=== PATIENT | female | born 1965 | race African-American/Black ===

== ENCOUNTER 2016-10-10 17:33 | Emergency (ER) | payer MEDICARE, MEDICAID ==
[2016-10-10 18:03] VITALS: BP 148/89
== END 2016-10-10 20:34 | disposition left against medical advice (07) ==
LOC: ED 17:33
DX: M54.9 Dorsalgia, unspecified (principal)

== ENCOUNTER 2016-10-12 02:54 | Emergency (ER) | payer MEDICARE, MEDICAID ==
[2016-10-12] MEDS ORDERED: Ketorolac INJ* 60 MG/2 ML VIAL IM ONE (03:33)
[2016-10-12] MEDS ORDERED: Cyclobenzaprine TAB* 10 MG PO ONE (03:33)
--- NOTE | 2016-10-12 03:53 | ED ---
Zhen Haynes Rebecca, scribed for Luis Wonguel on 10/12/16 at 0327 . Back Pain - HPI Summary HPI Summary: Pt is a 51 y/o F who presents to ED c/o back pain. Pain is acute on chronic, worsening 1 week ago. Pain is diffuse, characterized as a burning and currently ranked 10/10. Sx aggravated by movement, alleviated by nothing, unchanged by Percocet (taken at 1800). Denies CP, SOB. Denies any recent trauma. Pt states that when her chronic pain worsens, she typically comes to [facility] to receive a Toradol shot. Notified her PCP of pain who state that she cannot receive Toradol shot at the office and that has why she has come to ED. Does not want a full work up, just a Toradol shot. Last physical exam was July 2016. - History of Current Complaint Stated Complaint: BACK PAIN Time Seen by Provider: 10/12/16 03:16 Hx Obtained From: Patient Onset/Duration: Gradual Onset, Lasting Weeks - 1 week, Still Present Back Pain Location: Is Diffuse Severity Initially: Moderate Severity Currently: Severe Pain Intensity: 10 Pain Scale Used: 0-10 Numeric Character: Burning Aggravating Symptom(s): Movement Alleviating Symptom(s): Nothing Associated Signs And Symptoms: Positive: Negative. Negative: Abdominal Pain - Allergies/Home Medications Allergies/Adverse Reactions: Allergies Allergy/AdvReac Type Severity Reaction Status Date / Time Ibuprofen Allergy Intermediate Edema Verified 09/03/16 16:05 PMH/Surg Hx/FS Hx/Imm Hx Endocrine/Hematology History: Denies: Hx Anticoagulant Therapy, Hx Diabetes Cardiovascular History: Reports: Hx Hypertension - ON MEDS Denies: Hx Congestive Heart Failure Musculoskeletal History: Reports: Other Musculoskeletal History - right total knee replacement, back issues Comment Only: Hx Back Problems - L5 fusion Neurological History: Denies: Hx Headaches, Hx Nerve Disease, Hx Seizures Psychiatric History: Reports: Hx Depression - Cancer History Hx Chemotherapy: No Hx Radiation Therapy: No - Surgical History Surgery Procedure, Year, and Place: L5 spinal fusion 2006, Right TKR 2009 - Immunization History Date of Tetanus Vaccine: utd Date of Influenza Vaccine: utd Infectious Disease History: No Infectious Disease History: Denies: Traveled Outside the [place] in Last 30 Days - Family History Known Family History: Positive: Cardiac Disease, Hypertension, Other - CVA - Social History Alcohol Use: None Hx Substance Use: Yes Substance Use Type: Reports: Excessive Caffeine, Marijuana, Other - h/o narcotic abuse Substance Use Comment - Amount & Last Used: 2 days ago Smoking Status (MU): Light Every Day Tobacco Smoker Review of Systems Negative: Chest Pain Negative: Shortness Of Breath Positive: Arthralgia - Diffuse back pain All Other Systems Reviewed And Are Negative: Yes Physical Exam Triage Information Reviewed: Yes Vital Signs On Initial Exam: Initial Vitals Temp Pulse Resp BP Pulse Ox 97.5 F 67 16 133/84 100 10/12/16 03:17 10/12/16 03:17 10/12/16 03:17 10/12/16 03:17 10/12/16 03:17 Vital Signs Reviewed: Yes Appearance: Positive: Well-Appearing, No Pain Distress Skin: Positive: Warm, Skin Color Reflects Adequate Perfusion, Dry Head/Face: Positive: Normal Head/Face Inspection Eyes: Positive: EOMI, JUAREZ ENT: Positive: Normal ENT inspection Neck: Positive: Supple, Nontender Respiratory/Lung Sounds: Positive: Clear to Auscultation, Breath Sounds Present Cardiovascular: Positive: RRR, Pulses are Symmetrical in both Upper and Lower Extremities Abdomen Description: Positive: Nontender, Soft Bowel Sounds: Positive: Present Musculoskeletal: Positive: Strength/ROM Intact, Other - Spasm of the lumbar spine Neurological: Positive: Normal, Sensory/Motor Intact, Alert, Oriented to Person Place, Time Diagnostics - Vital Signs Vital Signs Temp Pulse Resp BP Pulse Ox 10/12/16 03:17 97.5 F 67 16 133/84 100 - Laboratory Lab Statement: Any lab studies that have been ordered have been reviewed, and results considered in the medical decision making process. Back Pain Course/Dx - Course Assessment/Plan: Pt is a 51 y/o F who presents to ED with a CC of acute on chronic back pain, worse in the last week. Denies CP, SOB. Does not want a full work up. Would like to receive a Toradol shot to relieve pain and be d/c to home without workup. - Diagnoses Provider Diagnoses: spasm of lumbar spine, Back pain Discharge - Discharge Plan Condition: Stable Disposition: HOME Prescriptions: Cyclobenzaprine TAB* [Flexeril TAB*] 10 mg PO TID PRN #21 tab PRN Reason: Pain Patient Education Materials: Muscle Spasm (ED) Referrals: Magalys Glass MD [Primary Care Provider] - 3 Days (Follow up with your primary care physician within the next 3 days. ) The documentation as recorded by the Zhen ruiz Rebecca accurately reflects the service I personally performed and the decisions made by , Glen Wong.
[2016-10-12 04:41] VITALS: BP 126/89
== END 2016-10-12 04:10 | disposition home or self-care (01) ==
LOC: ED 02:54
DX: M62.830 Muscle spasm of back (principal); M54.9 Dorsalgia, unspecified; G89.29 Other chronic pain; I10 Essential (primary) hypertension; Z72.0 Tobacco use; F32.9 Major depressive disorder, single episode, unspecified
CPT/HCPCS: 96372; 99282; A9270-GY; J1885

== ENCOUNTER 2016-12-20 00:40 | Emergency (ER) | payer MEDICARE, MEDICAID ==
[2016-12-20] MEDS ORDERED: Ketorolac INJ* 60 MG/2 ML VIAL IM ONE (01:15)
[2016-12-20] MEDS ORDERED: Morphine INJ* 10 MG/ML 1 ML SYRINGE SUBCUT ONE (01:47)
--- NOTE | 2016-12-20 01:52 | ED ---
Back Pain - HPI Summary HPI Summary: Pt here w/ acute on chronic LBP and leg pain. She "overdid it today" - pain was acting up but she kept going and now she can't take it anymore. Denies fever, chills, N/V/D, weakness, numbness, incontinence of bowels/bladder. Reports she tried oxycodone at home w/o much relief. Would like a shot of toradol as this usually works well for her. - History of Current Complaint Chief Complaint: EDBackInjuryPain Stated Complaint: BACK PAIN Time Seen by Provider: 12/20/16 01:14 Hx Obtained From: Patient Pain Intensity: 10 - Allergies/Home Medications Allergies/Adverse Reactions: Allergies Allergy/AdvReac Type Severity Reaction Status Date / Time Ibuprofen Allergy Intermediate Edema Verified 09/03/16 16:05 PMH/Surg Hx/FS Hx/Imm Hx Previously Healthy: Yes Endocrine/Hematology History: Denies: Hx Anticoagulant Therapy, Hx Diabetes Cardiovascular History: Reports: Hx Hypertension - ON MEDS Denies: Hx Congestive Heart Failure Musculoskeletal History: Reports: Other Musculoskeletal History - right total knee replacement, back issues Comment Only: Hx Back Problems - L5 fusion Neurological History: Denies: Hx Headaches, Hx Nerve Disease, Hx Seizures Psychiatric History: Reports: Hx Depression - Cancer History Hx Chemotherapy: No Hx Radiation Therapy: No - Surgical History Surgery Procedure, Year, and Place: L5 spinal fusion 2006, Right TKR 2009 - Immunization History Date of Tetanus Vaccine: utd Date of Influenza Vaccine: utd Infectious Disease History: No Infectious Disease History: Denies: Traveled Outside the [place] in Last 30 Days - Family History Known Family History: Positive: Cardiac Disease, Hypertension, Other - CVA - Social History Alcohol Use: None Hx Substance Use: Yes Substance Use Type: Reports: Excessive Caffeine, Marijuana, Other Substance Use Comment - Amount & Last Used: 2 days ago Smoking Status (MU): Light Every Day Tobacco Smoker Review of Systems Negative: Fever, Chills Negative: Chest Pain Negative: Shortness Of Breath Negative: Abdominal Pain, Vomiting, Diarrhea, Nausea Positive: no symptoms reported Musculoskeletal: Other - see HPI Negative: Rash, Bruising Neurological: Other - see HPI Negative: Headache, Weakness, Paresthesia, Numbness Psychological: Normal All Other Systems Reviewed And Are Negative: Yes Physical Exam Triage Information Reviewed: Yes Vital Signs On Initial Exam: Initial Vitals Temp Pulse Resp BP Pulse Ox 96.8 F 86 15 151/96 100 12/20/16 00:43 12/20/16 00:43 12/20/16 00:43 12/20/16 00:43 12/20/16 00:43 Vital Signs Reviewed: Yes Appearance: Positive: Well-Appearing, Pain Distress - lying supine on stretcher and appears to be in moderate pain, Obese Skin: Positive: Warm, Dry Head/Face: Positive: Normal Head/Face Inspection Eyes: Positive: Normal, EOMI, Conjunctiva Clear ENT: Positive: Hearing grossly normal Respiratory/Lung Sounds: Positive: Breath Sounds Present Cardiovascular: Positive: Normal, Pulses are Symmetrical in both Upper and Lower Extremities Abdomen Description: Positive: Nontender, Soft Musculoskeletal: Positive: Limited @ - LE's movement triggers LBP; Lumbar region TTP Neurological: Positive: Normal, Sensory/Motor Intact, Alert, Oriented to Person Place, Time, CN Intact II-III Psychiatric: Positive: Normal - concerned Diagnostics - Vital Signs Vital Signs Temp Pulse Resp BP Pulse Ox 12/20/16 00:43 96.8 F 86 15 151/96 100 - Laboratory Lab Statement: Any lab studies that have been ordered have been reviewed, and results considered in the medical decision making process. Re-Evaluation - Re-Evaluation First Eval Change: Improved - mild improvement w/ toradol - requesting something else as well Back Pain Course/Dx - Course Course Of Treatment: Pt presents w/ acute on chronic LBP + LE pain. Reports she' s been doing well but overdid it today and needed help getting pain under control as she tried oxycodone at home w/o relief. Provided w/ NSAID and subcutaneous narcotic pain med with the intentions of reducing pain and inflammation over a longer period of time. Pt agrees w/ plan and will follow-up with PCP. She is aware of danger s/sx of when to return to ED. - Diagnoses Provider Diagnoses: Acute exacerbation of chronic low back pain Discharge - Discharge Plan Condition: Stable Disposition: HOME Patient Education Materials: Chronic Back Pain (ED), Leg Pain (ED) Referrals: Magalys Glass MD [Primary Care Provider] - Additional Instructions: Follow-up with PCP. Call tomorrow to schedule an appointment. *If you develop fever, chills, chest pain, shortness of breath, weakness/ numbness in lower extremities, incontinence of bowels/bladder, return to ED
[2016-12-20 03:55] VITALS: BP 131/80
== END 2016-12-20 03:53 | disposition home or self-care (01) ==
LOC: ED 00:40
DX: M54.5 Low back pain (principal)
CPT/HCPCS: 96372; 99281; J1885; J2270

== ENCOUNTER 2017-02-03 22:35 | Emergency (ER) | payer MEDICAID, MEDICARE ==
[2017-02-03 22:53] VITALS: BP 154/88
== END 2017-02-03 23:45 | disposition left against medical advice (07) ==
LOC: ED 22:35
DX: R52 Pain, unspecified (principal); Z53.21 Procedure and treatment not carried out due to patient leaving prior to being seen by health care provider

== ENCOUNTER 2017-02-04 03:55 | Emergency (ER) | payer SELFPAY ==
[2017-02-04] MEDS ORDERED: oxyCODONE/Acetamin 5/325 MG* TAB PO ONE (06:19)
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
[2017-02-04 07:38] VITALS: BP 154/103
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
== END 2017-02-04 07:43 | disposition home or self-care (01) ==
LOC: ED 03:55
DX: S06.0X0A Concussion without loss of consciousness, initial encounter (principal); S40.012A Contusion of left shoulder, initial encounter; S16.1XXA Strain of muscle, fascia and tendon at neck level, initial encounter; R51 Headache; M54.2 Cervicalgia; M54.5 Low back pain; F17.210 Nicotine dependence, cigarettes, uncomplicated; V43.52XA Car driver injured in collision with other type car in traffic accident, initial encounter; Y93.9 Activity, unspecified; Y92.9 Unspecified place or not applicable
CPT/HCPCS: 70450; 72125; 99281; A9270-GY

== ENCOUNTER 2017-10-24 22:27 | Emergency (ER) | payer MEDICARE, MEDICAID ==
[2017-10-24 22:35] VITALS: BP 144/93
== END 2017-10-25 00:10 | disposition left against medical advice (07) ==
LOC: ED 22:27
DX: M54.9 Dorsalgia, unspecified (principal); Z53.21 Procedure and treatment not carried out due to patient leaving prior to being seen by health care provider

== ENCOUNTER 2017-10-25 20:41 | Emergency (ER) | payer MEDICARE, MEDICAID ==
[2017-10-25] MEDS ORDERED: Ketorolac INJ* 60 MG/2 ML VIAL IM ONE (21:03)
[2017-10-25] MEDS ORDERED: diPHENhydraMINE PO* 25 MG PO ONE (21:03)
--- NOTE | 2017-10-25 21:05 | ED ---
Lower Extremity - HPI Summary HPI Summary: 52-year-old female presents for left calf cramping. She states she fell on Monday and has been having Travis horses in her legs. She has a history of chronic back pain is unchanged since the fall. She states she slipped on ice when she fell. She denies any head injury. She states she twisted her right ankle and then landed on her left knee. She states she has a history of a long cyst on her left knee that has not gone away. She states she has notices some swelling of left leg. She denies any chest pain or shortness of breath. She denies any history of blood clots or family history of blood clots. she has been taking her normal pain medication without relief. She states she is here for a Toradol shot with benadryl. She has been able to ambulate. She denies any fever. She denies any loss of bowel or bladder or saddle anaesthesia. Her back pain is in same location as previous. - History of Current Complaint Chief Complaint: EDGeneral Stated Complaint: LT LEG SWOLLEN Time Seen by Provider: 10/25/17 20:55 Pain Intensity: 10 - Allergies/Home Medications Allergies/Adverse Reactions: Allergies Allergy/AdvReac Type Severity Reaction Status Date / Time MS Ibuprofen [Ibuprofen] Allergy Intermediate Edema Verified 10/24/17 22:35 PMH/Surg Hx/FS Hx/Imm Hx Endocrine/Hematology History: Denies: Hx Anticoagulant Therapy, Hx Diabetes Cardiovascular History: Reports: Hx Hypertension - ON MEDS Denies: Hx Congestive Heart Failure Musculoskeletal History: Reports: Other Musculoskeletal History - right total knee replacement, back issues Comment Only: Hx Back Problems - L5 fusion Neurological History: Denies: Hx Headaches, Hx Nerve Disease, Hx Seizures Psychiatric History: Reports: Hx Depression - Cancer History Hx Chemotherapy: No Hx Radiation Therapy: No - Surgical History Surgery Procedure, Year, and Place: L5 spinal fusion 2006, Right TKR 2009 - Immunization History Date of Tetanus Vaccine: utd Date of Influenza Vaccine: utd Infectious Disease History: No Infectious Disease History: Denies: Traveled Outside the [place] in Last 30 Days - Family History Known Family History: Positive: Cardiac Disease, Hypertension, Other - CVA - Social History Alcohol Use: None Hx Substance Use: Yes Substance Use Type: Reports: Excessive Caffeine, Marijuana, Other Substance Use Comment - Amount & Last Used: 2 days ago Smoking Status (MU): Light Every Day Tobacco Smoker Review of Systems Negative: Chest Pain Negative: Shortness Of Breath Positive: Myalgia - left calf pain All Other Systems Reviewed And Are Negative: Yes Physical Exam Triage Information Reviewed: Yes Vital Signs On Initial Exam: Initial Vitals Temp Pulse Resp BP Pulse Ox 98.1 F 84 20 129/95 100 10/25/17 20:43 10/25/17 20:43 10/25/17 20:43 10/25/17 20:43 10/25/17 20:43 Vital Signs Reviewed: Yes Appearance: Positive: Well-Appearing Skin: Positive: Warm, Dry Head/Face: Positive: Normal Head/Face Inspection Eyes: Positive: Normal, Conjunctiva Clear Respiratory/Lung Sounds: Positive: Clear to Auscultation, Breath Sounds Present Cardiovascular: Positive: Normal, RRR Musculoskeletal: Positive: Strength/ROM Intact - left leg, Other - good pulses, sensation grossly intact, nontender left calf, tenderness to lower back. Negative: Carmencita Sign Left, Edema Left Neurological: Positive: Normal Psychiatric: Positive: Normal Diagnostics - Vital Signs Vital Signs Temp Pulse Resp BP Pulse Ox 10/25/17 20:43 98.1 F 84 20 129/95 100 - Laboratory Lab Statement: Any lab studies that have been ordered have been reviewed, and results considered in the medical decision making process. Lower Extremity Course/Dx - Course Course Of Treatment: 52-year-old female presents for left calf cramping. She states she fell on Monday and has been having Travis horses in her legs. She has a history of chronic back pain is unchanged since the fall. She states she slipped on ice when she fell. She denies any head injury. She states she twisted her right ankle and then landed on her left knee. She states she has a history of a long cyst on her left knee that has not gone away. She states she has notices some swelling of left leg. She denies any chest pain or shortness of breath. She denies any history of blood clots or family history of blood clots. she has been taking her normal pain medication without relief. She states she is here for a Toradol shot with benadryl. She has been able to ambulate. on exam neg homans, nontender calf. good pulses. offered to due u/ s to r/o blood clot and lab work for electroyltes but patient declined. states only here for toradol shot and will follow up with primary for continued care. gave toradol. will give flexeril for home. patient understand and agrees with plan. - Diagnoses Differential Diagnosis/HQI/PQRI: Positive: Dislocation, Sprain, Strain Provider Diagnoses: Muscle spasm of left calf Discharge - Discharge Plan Condition: Good Disposition: HOME Prescriptions: Cyclobenzaprine TAB* [Flexeril 10 MG TAB*] 10 mg PO TID PRN #9 tab PRN Reason: Pain Patient Education Materials: Muscle Spasm (ED) Referrals: Magalys Glass MD [Primary Care Provider] - Additional Instructions: Take muscle relaxers three times a day for pain Use Tylenol for pain every 6 hours ice/heat area, move as much as possible Follow up with primary within 5 days Return to ED if develop any new or worsening symptoms
[2017-10-25] MEDS ORDERED: Cyclobenzaprine TAB* 10 MG PO ONE (21:07)
[2017-10-25] MEDS ORDERED: diPHENhydraMINE IV* 50 MG/ML 1 ml VIAL (BENADRYL) IM ONE (21:17)
[2017-10-25] MEDS ORDERED: diPHENhydraMINE IV* 50 MG/ML 1 ml VIAL (BENADRYL) ONE (21:18)
[2017-10-25 21:58] VITALS: BP 139/81
== END 2017-10-25 21:58 | disposition home or self-care (01) ==
LOC: ED 20:41
DX: M62.831 Muscle spasm of calf (principal); M79.605 Pain in left leg
CPT/HCPCS: 96372; 99282; A9270-GY; J1200; J1885

== ENCOUNTER 2018-04-25 20:05 | Emergency (ER) | payer MEDICARE, MEDICAID ==
--- NOTE | 2018-04-25 21:59 | ED ---
Throat Pain/Nasal Congestion - HPI Summary HPI Summary: 52 female presents ER with complaints of right eye irritation and discharge began yesterday. States her eye feels itchy. Patient states she was around her grandchildren who have pinkeye. Patient was treating them with her drops. States discharge is purulent. Denies any photosensitivity or foreign body. Denies anything getting into her eye. No other complaints or concerns. No significant past medical history. Does not wear contacts does wear glasses. - History of Current Complaint Chief Complaint: EDEyeProblem Time Seen by Provider: 04/25/18 21:03 Hx Obtained From: Patient Onset/Duration: Sudden Onset, Lasting Days - 1, Still Present, Worse Since Severity: Mild Associated Signs And Symptoms: Positive: Negative Cough: None - Allergies/Home Medications Allergies/Adverse Reactions: Allergies Allergy/AdvReac Type Severity Reaction Status Date / Time ibuprofen Allergy Edema Verified 04/25/18 20:09 PMH/Surg Hx/FS Hx/Imm Hx Previously Healthy: Yes - other all Endocrine/Hematology History: Denies: Hx Anticoagulant Therapy, Hx Diabetes Cardiovascular History: Reports: Hx Hypertension - ON MEDS Denies: Hx Congestive Heart Failure Musculoskeletal History: Reports: Other Musculoskeletal History - right total knee replacement, back issues Comment Only: Hx Back Problems - L5 fusion Neurological History: Denies: Hx Headaches, Hx Nerve Disease, Hx Seizures Psychiatric History: Reports: Hx Depression - Cancer History Hx Chemotherapy: No Hx Radiation Therapy: No - Surgical History Surgery Procedure, Year, and Place: L5 spinal fusion 2006, Right TKR 2009 - Immunization History Date of Tetanus Vaccine: utd Date of Influenza Vaccine: utd Infectious Disease History: No Infectious Disease History: Denies: Traveled Outside the [place] in Last 30 Days - Family History Known Family History: Positive: Cardiac Disease, Hypertension, Other - CVA - Social History Alcohol Use: None Hx Substance Use: Yes Substance Use Type: Reports: Excessive Caffeine, Marijuana, Other Substance Use Comment - Amount & Last Used: 2 days ago Smoking Status (MU): Light Every Day Tobacco Smoker Review of Systems Constitutional: Negative Positive: Drainage, Erythema, Other - itching right eye Cardiovascular: Negative Respiratory: Negative Musculoskeletal: Negative Skin: Negative Neurological: Negative All Other Systems Reviewed And Are Negative: Yes Physical Exam Triage Information Reviewed: Yes Vital Signs On Initial Exam: Initial Vitals Temp Pulse Resp BP Pulse Ox 96.9 F 77 20 140/89 100 04/25/18 20:06 04/25/18 20:06 04/25/18 20:06 04/25/18 20:06 04/25/18 20:06 Vital Signs Reviewed: Yes Appearance: Positive: Well-Appearing, No Pain Distress, Well-Nourished Skin: Positive: Warm, Skin Color Reflects Adequate Perfusion, Dry. Negative: Cold, Numb, Diaphoretic, Pale, Erythema @ Head/Face: Positive: Normal Head/Face Inspection Eyes: Positive: EOMI, JUAREZ, Conjunctiva Inflammed, Discharge - Purulent crusting in Right eye ENT: Positive: Normal ENT inspection, Hearing grossly normal, Pharynx normal, TMs normal, Uvula midline. Negative: Tonsillar swelling, Tonsillar exudate Neck: Positive: Supple, Nontender, No Lymphadenopathy Respiratory/Lung Sounds: Positive: Clear to Auscultation, Breath Sounds Present. Negative: Rales, Rhonchi Cardiovascular: Positive: Normal, RRR, Pulses are Symmetrical in both Upper and Lower Extremities. Negative: Murmur, Rub Bowel Sounds: Positive: Present Musculoskeletal: Positive: Normal, Strength/ROM Intact. Negative: Limited @, Interruption @, Pain @ Neurological: Positive: Normal, Sensory/Motor Intact, Alert, Oriented to Person Place, Time, NV Bundle Intact Distally, Normal Gait Diagnostics - Vital Signs Vital Signs Temp Pulse Resp BP Pulse Ox 04/25/18 21:32 97.5 F 63 18 126/76 04/25/18 20:06 96.9 F 77 20 140/89 100 - Laboratory Lab Statement: Any lab studies that have been ordered have been reviewed, and results considered in the medical decision making process. EENT Course/Dx - Course Course Of Treatment: Appears to be suffering from conjunctivitis. Will treat with Polytrim. Patient does not wear contacts. Warm compresses good hygiene. Aware worsening signs symptoms watch out for. Follow-up with primary care provider. - Differential Diagnoses Differential Diagnoses: Allergic Rhinitis, Conjunctivitis - Diagnoses Provider Diagnoses: Conjunctivitis, right eye Discharge - Sign-Out/Discharge Documenting (check all that apply): Patient Departure - Discharge Plan Condition: Good Disposition: HOME Patient Education Materials: Conjunctivitis (ED) Referrals: Magalys Glass MD [Primary Care Provider] - Additional Instructions: use prescribed drops as directed for the next 7-10 days even if symptoms improve. if symptoms spread to other eye you may also use drops in that eye. warm compresses. wash all pillows, blankets, towels, sheets with hot water. wash hands frequently this is contagious follow up with PCP as needed - Billing Disposition and Condition Condition: GOOD Disposition: Home
[2018-04-25] MEDS ORDERED: Polymyx/Trimethoprim OPTH* 10 ML BTL RIGHT EYE SCH (22:00)
[2018-04-25 22:46] VITALS: BP 00/00
== END 2018-04-25 22:44 | disposition home or self-care (01) ==
LOC: ED 20:05
DX: H10.31 Unspecified acute conjunctivitis, right eye (principal); I10 Essential (primary) hypertension; Z96.651 Presence of right artificial knee joint; Z88.6 Allergy status to analgesic agent; Z82.49 Family history of ischemic heart disease and other diseases of the circulatory system; Z82.3 Family history of stroke; F17.200 Nicotine dependence, unspecified, uncomplicated
CPT/HCPCS: 99282

== ENCOUNTER 2019-03-11 08:25 | Observation (INO) | payer MEDICARE, MEDICAID ==
[~2019-03-11 08:25] MED LIST: Acetaminophen TAB* 325 MG ONE; Acetaminophen TAB* 325 MG PO ONE; Buffered Lidocaine 1% SYRIN* 1 ML/SYRINGE INTRADERM ONE; Famotidine IV* 10 MG/ML 2 ML (20 mg) IV ONE; Famotidine IV* 10 MG/ML 2 ML (20 mg) ONE; Gabapentin CAP(*) 300 MG ONE; Gabapentin CAP(*) 300 MG PO ONE; Lactated Ringers 1000 ML Bag* 1,000 ML IV SCH; Tranexamic Acid 1,000 MG in NS 0.9% 50 ML* (outpatient use) IV SCH; ceFAZolin 2 GM in NS PREMIX(*) 2 GM/100 ML BAG IVPB ONE
--- OUTSIDE RECORDS SUMMARY | 2019-03-11 08:34 | XMS REPORT | Continuity of Care Document ---
:1965 External Reference #:[id number] Author Name Chana Cortez Care Team Providers Name Role Phone Patient's Choice Primary Care Physician Unavailable Payers Date Identification Numbers Payment Provider Subscriber Policy Number: [id number] Medicare Nunu Cortes PayID: [id number] [address] [place] [address] Policy Number: [id number] Medicaid Nunu Cortes PayID: [id number] [address] [place] [address] Effective: 2009 Policy Number: [id number] Medicare Nunu Cortes Expires: 2019 PayID: [id number] [address] [place] [address] Problems Active Problems Provider Date Late effect of sprain AND/OR strain Ezequiel Horton M.D. Onset: 01/09/2019 without tendon injury Sciatica Ezequiel Horton M.D. Onset: 09/24/2015 Benign essential hypertension Ramiro Sow M.D.,FACP Onset: 05/10/2010 Family History Date Family Member(s) Observation Comments General mother w/ breast CA in late 50s/early 60s4 paternal aunts w/ breast CA Social History Type Date Description Comments Sex Unknown Marital Status Single Occupation Unemployed General single, lives alone, currently unemployed and on disability. Tobacco Use Start: Unknown Current Cigarette Smoker 1 Pack Daily ETOH Use Denies alcohol use Recreational Drug Use Denies Drug Use Tobacco Use Start: Unknown Patient is a current smoker, smokes every day Smoking Status Reviewed: 01/09/19 Patient is a current smoker, smokes every day Allergies, Adverse Reactions, Alerts Active Allergies Reaction Severity Comments Date Ibuprofen swelling 05/10/2010 Morphine 12/06/2013 Inactive Allergies NKDA 05/10/2010 Medications Active Medications SIG Qnty Indications Ordering Date Provider THC Free Ezequiel Horton, 02/13/2019 20mg/ml Liquid Dax Flector apply 1 60units Ezequiel Horton 05/04/2015 1.3% Patches patch bid M.DEma Clonazepam Ezequiel Horton 10/01/2014 1mg Tablets M.D. Hydrochlorothiazide Unknown 25mg History Medications Gabapentin take one 60caps Ezequiel 10/28/2015 - 100mg Capsules capsules by Dax Horton 02/13/2019 mouth at bedtime and in the morning Lidocaine apply to back 35.440gm Sandee 05/04/2015 - 5% Ointment area three Carreno-Young, 02/13/2019 times a day as M.Sydnee needed. Percocet 1 by mouth 60tabs Ezequiel 05/01/2015 - 5-325mg Tablets every 6 hours Dax Horton 10/22/2015 as needed pain Gabapentin Two capsules 60caps Ezequiel 11/25/2014 - 300mg Capsules at bedtime for Dax Horton 10/28/2015 nerve pain Celecoxib Take one 60caps Ezequiel 11/25/2014 - 200mg Capsules capsule two Dax Horton 02/13/2019 times a day. Ultram 1-2 by mouth 60tabs Ezequiel 11/12/2014 - 50mg Tablets twice a day as Dax Horton 02/13/2019 needed, take with 2 es tylenol Oxycodone HCL 1 by mouth Ezequiel 10/01/2014 - 10mg Tablets every 6 hr. as Dax Horton 11/11/2014 needed pain Ketorolac Tromethamine take 1 by 15tabs Ezequiel 01/31/2014 - 10mg mouth every 8 Dax Horton 06/03/2014 Tablets hours as needed for migraine. take with food. Percocet 1-2 tabs po 2tabs Ezequiel 03/11/2013 - 5-325mg Tablets daily prn pain Dax Horton 12/06/2013 Neurontin 1 po bid, then 90caps Ezequiel 01/10/2013 - 300mg Capsules after 4 days Dax Horton 12/06/2013 if no effect, increase qhs dose to 2 tabs Vicodin 1-2 tablets 30tabs Ezequiel 01/10/2013 - 5-500mg Tablets qhs as needed Dax Horton 12/06/2013 Ultram 1-2 po qid prn 90tabs Ezequiel 05/31/2011 - 50mg Tablets Dax Horton 01/10/2013 Alprazolam 1 tablets po 21tabs 300.01 Ramiro Randhawa 04/05/2010 - 1mg Tablets tid prn Magi, 12/06/2013 Dax,FACP Omeprazole 1 po qd 30caps 716.96 Ramiro Randhawa 04/05/2010 - 20mg Capsules DR Sow, 01/10/2013 Dax,FACP Naproxen 1 po bid prn 60tabs 716.96 Ramiro Randhawa 04/05/2010 - 500mg Tablets Magi, 01/10/2013 Dax,FACP Paroxetine HCL 1 po qd with 30tabs 300.01 Ramiro Randhawa 04/05/2010 - 20mg Tablets 40 mg tab Magi, 01/10/2013 Dax,LUDWIGP Paroxetine HCL qd po plus 20 300.01 Ramiro Randhawa 04/05/2010 - 40mg Tablets mg tab qam Magi, 02/13/2019 Dax,FACP Paroxetine HCL 1 tablet po 60tabs 278.01 Jabier 02/09/2010 - 40mg Tablets bid Dax Hutton 04/05/2010 HCTZ 1 po qd 90units 278.01 Jabier 12/28/2009 - 25mg. Dax Hutton 04/05/2010 Chantix 1 tab po daily 11tablets 305.1 Jabier 11/25/2009 - 0.5mg Tablets for 3 days Dax Hutton 12/28/2009 then 1 tab po bid for 4 days Chantix 1 po bid 120tabs 305.1 Jabier 11/25/2009 - 1mg Tablets Dax Hutton 12/28/2009 Buspirone HCL 1 tab po bid x 120tabs 300.02 Thanana, 10/27/2009 - 7.5mg Tablets 1 wk, then 2 Dax oNlen 12/28/2009 tabs po bid Piroxicam 1 tablet po qd 30caps 300.02 Jabier, 09/28/2009 - 20mg Capsules corin Hutton M.D. 02/09/2010 Omeprazole 1 po bid 60caps 787.1 Jabier, 08/06/2009 - 20mg Capsules DR Brennen M.D. 02/09/2010 Colace 1 po bid 180caps Thananart, 08/06/2009 - 100mg Capsules Dax Nolen 02/09/2010 Taylor 1 tab po bid 30caps Thananart, 04/24/2009 - 60mg Caps ER 24HR Dax Nolen 08/06/2009 Paroxetine HCL 2 tabs po qd 90tabs 300.02 Jabier, 04/23/2009 - 20mg Tablets Dax Hutton 02/09/2010 Lyrica 1 tab po bid 60caps 719.47 Preethi, 03/25/2009 - 75mg Capsules Dax Nolen 08/06/2009 Hydrochlorothiazide 1 po qd 30tabs 796.2 Jabier, 03/04/2009 - 25mg Dax Hutton 09/30/2014 Tablets Paroxetine HCL 2 tabs po qd 60tabs 300.02 Thanquin, 03/04/2009 - 20mg Tablets Dax Nolen 04/23/2009 Voltaren Gel apply 4g to 5Tubes 300.02 Thanquin, 03/04/2009 - 1% affected area Dax Nolen 08/06/2009 qid PA# [id number] Paroxetine HCL 1 tab po qd 30tabs 327.02 Thanana, 12/29/2008 - 20mg Tablets Dax Nolen 03/04/2009 Paroxetine HCL 1 tab po qd x 60tabs 300.02 Thananart, 10/13/2008 - 10mg Tablets 7 days, then 2 Dax Nolen 12/29/2008 tabs po qd Amoxicillin 1 tab po bid x 20tabs 461.8 Thananart, 09/22/2008 - 875mg Tablets 10 D. Dax Nolen 03/04/2009 Graham Nasal [place] 2 sprays per 1Bottle 461.8 Thananart, 09/22/2008 - 0.65% nostril Dax Nolen 02/09/2010 Solution bid-tid prn Klonopin 1 tab po tid 90tabs 300.01 Gerard Armando 09/22/2008 - 1mg Tablets Dax Long 04/05/2010 Klonopin 1 tab po bid 60tabs Thananart, 09/04/2008 - 1mg Tablets Dax Nolen 09/22/2008 Alprazolam 1 tab po tid 10tabs Ramiro Randhawa 08/20/2008 - 0.25mg Tablets prn Cashion, 08/06/2009 Dax,FACP Restoril qhs prn 30caps Thananart, 06/26/2008 - 15mg Capsules Dax Nolen 07/08/2008 Klonopin 1 tab po bid 60tabs Thananart, 06/26/2008 - 0.5mg Tablets Dax Nolen 09/04/2008 Restoril 1 po qhs prn 30caps Thananart, 05/01/2008 - 30mg Capsules Dax Nolen 06/26/2008 Temazepam 1 tab po qhs 30caps Thananart, 04/24/2008 - 15mg Capsules Dax Nolen 05/01/2008 Zolpidem Tartrate 1 tab po qhs 30tabs 796.2 Thananart, 04/04/2008 - 10mg Tablets prn Dax Nolen 04/24/2008 Bupropion HCL 1 tab po qd 30tabs Thananart, 04/04/2008 - 300mg Tablets ER Dax Nolen 08/06/2009 24HR Taylor 1 tab po bid Unknown - 50mg Caps ER 24HR 04/24/2009 Baclofen .5 po q8h as 60tabs Unknown - 10mg Tablets needed for 08/06/2009 spasm. Suboxone 1 under tongue 90tabs Unknown - 8-2mg Tablets Sub twice a day 09/28/2009 Celebrex 1 po bid 360caps Thananart, - 100mg Capsules Dax Nolen 09/28/2009 Lyrica 1 po bid 90caps Unknown - 100mg Capsules 09/28/2009 Orphenadrine Citrate CR 2 tabs po qhd 20tabs Unknown - 100mg prn 08/06/2009 Tablets ER 12HR Lyrica 1 po bid 719.47 Unknown - 100mg Capsules 08/06/2009 Savella 1 tab po bid Unknown - 50mg Tablets prn 09/28/2009 Tylenol Extra Strength 2 po prn Unknown - 500mg 12/06/2013 Tablets Oxycodone HCL Unknown - 10/05/2014 Klonopin 1 by mouth 30tabs Unknown - 1mg Tablets twice a day 11/30/2014 Naproxen 1 tab po bid Unknown - 500mg 11/25/2014 Oxaprozin 2 tabs po qd 327.02 Unknown - 600mg Tablets prn 08/06/2009 Lyrica 1 tab po tid 327.02 Unknown - 100mg Capsules 03/25/2009 Morphine Sulfate one to two Unknown - 15mg/ml tabs po bid 08/06/2009 Solution Taylor one tab po bid Unknown - 100mg Caps ER 24HR 04/23/2009 Senna Unknown - 15mg Tablets 08/06/2009 Skelaxin take 1/2 to 1 90tabs 796.2 Unknown - 800mg Tablets tab q6to 8 hr 08/06/2009 as needed do not exceed 3 tabs daily Lidoderm Patch 1 patch on for 30units Ezequiel - 5% Patches 12 hours, no Dax Horton 11/30/2014 patch for the other 12 hours Tizanidine HCL 1 tab po qam 796.2 Sanito, - 4mg Tablets and sylvester Cuello MD 04/24/2008 Oxycodone HCL 1 tab po q4h 796.2 Sanito, - 5mg Tablets pryonis Cuello MD 07/08/2008 Duragesic 1 patch td 796.2 Sanito, - 100mcg/HR Patches q72h MD Cuate 07/08/2008 72HR Remeron 1 tab po qhs 796.2 Thananart, - 30mg Tablets Dax Nolen 07/08/2008 Lyrica 1 tab po bid 796.2 Thananart, - 225mg Capsules Dax Nolen 12/29/2008 Bupropion HCL SR 1 tab po qd Thananart, - 200mg Tablets Dax Nolen 04/04/2008 ER 12HR Medications Administered in Office Medication SIG Qnty Indications Ordering Provider Date Depomedrol 40MG Ruddy Contreras M.D. 09/02/2015 Injection Depomedrol 40MG Ruddy Contreras M.D. 09/02/2015 Injection Depomedrol 40MG Emily Estrada RPA-C 08/26/2015 Injection Depomedrol 80MG Ezequiel Horton M.D. 10/28/2014 Injection Depomedrol 80MG PARRISH Moreno-C 10/01/2014 Injection Depomedrol 80MG PARRISH Moreno-C 05/02/2014 Injection Depomedrol 80MG Ezequiel Horton M.D. 01/10/2013 Injection Depomedrol 40MG Liz Robin PA 02/26/2010 Injection Depomedrol 40MG Mannie Fox, 12/22/2009 Injection R.S.A.-O Vital Signs Date Vital Result Comment 02/13/2019 11:05am Height 68 inches 5'8" Weight 211.00 lb Heart Rate 98 /min BP Systolic 142 mmHg BP Diastolic 78 mmHg Body Temperature 97.3 F Pain Level 10 BMI (Body Mass Index) 32.1 kg/m2 01/09/2019 10:49am Height 68 inches 5'8" Weight 211.00 lb Heart Rate 70 /min BP Systolic 124 mmHg BP Diastolic 70 mmHg Respiratory Rate 14 /min Pain Level 10 BMI (Body Mass Index) 32.1 kg/m2 09/24/2015 2:47pm Height 68 inches 5'8" Weight 215.00 lb Pain Level 8 BMI (Body Mass Index) 32.7 kg/m2 09/02/2015 1:01pm Height 68 inches 5'8" Weight 215.00 lb Pain Level 10 Pain is above a 10 BMI (Body Mass Index) 32.7 kg/m2 08/26/2015 12:53pm Height 68 inches 5'8" Weight 215.00 lb Pain Level 10 BMI (Body Mass Index) 32.7 kg/m2 11/25/2014 1:19pm Height 68 inches 5'8" Weight 215.00 lb Pain Level 10 BMI (Body Mass Index) 32.7 kg/m2 11/12/2014 9:27am Height 68 inches 5'8" Heart Rate 82 /min BP Systolic 143 mmHg BP Diastolic 101 mmHg 10/28/2014 10:32am Height 68 inches 5'8" Heart Rate 82 /min BP Systolic 140 mmHg BP Diastolic 96 mmHg 10/01/2014 10:28am Height 68 inches 5'8" Heart Rate 66 /min BP Systolic 132 mmHg BP Diastolic 87 mmHg 07/04/2014 11:12am Height 68 inches 5'8" Weight 215.00 lb Body Temperature 98.3 F BMI (Body Mass Index) 32.7 kg/m2 06/04/2014 3:11pm Height 68 inches 5'8" Weight 215.00 lb Heart Rate 66 /min BMI (Body Mass Index) 32.7 kg/m2 05/02/2014 1:22pm Height 68 inches 5'8" Weight 215.00 lb Heart Rate 76 /min Pain Level 10 BMI (Body Mass Index) 32.7 kg/m2 01/31/2014 10:18am Height 68 inches 5'8" Weight 215.00 lb Heart Rate 76 /min BP Systolic 123 mmHg BP Diastolic 85 mmHg BMI (Body Mass Index) 32.7 kg/m2 12/06/2013 1:29pm Height 68 inches 5'8" Weight 215.00 lb Heart Rate 71 /min BP Systolic 128 mmHg BP Diastolic 90 mmHg BMI (Body Mass Index) 32.7 kg/m2 05/10/2010 3:40pm Weight 256.00 lb Heart Rate 68 /min BP Systolic 120 mmHg BP Diastolic 70 mmHg 04/05/2010 11:29am Weight 262.00 lb with knee brace Heart Rate 90 /min BP Systolic Sitting 110 mmHg BP Diastolic Sitting 80 mmHg 02/09/2010 2:49pm Weight 259.00 lb Heart Rate 88 /min BP Systolic Sitting 112 mmHg BP Diastolic Sitting 70 mmHg 12/28/2009 10:48am Weight 272.00 lb Heart Rate 78 /min BP Systolic 142 mmHg BP Diastolic 92 mmHg 11/25/2009 9:44am Weight 259.00 lb Heart Rate 78 /min BP Systolic Sitting 118 mmHg BP Diastolic Sitting 90 mmHg 10/27/2009 11:15am Height 66 inches 5'6" Weight 251.00 lb Heart Rate 78 /min BP Systolic Sitting 124 mmHg BP Diastolic Sitting 94 mmHg Body Temperature 98.1 F O2 % BldC Oximetry 97 % BMI (Body Mass Index) 40.5 kg/m2 09/28/2009 11:26am Height 66 inches 5'6" Weight 256.00 lb Heart Rate 80 /min BP Systolic Sitting 140 mmHg BP Diastolic Sitting 106 mmHg BMI (Body Mass Index) 41.3 kg/m2 08/24/2009 3:34pm Height 66 inches 5'6" Weight 263.00 lb Heart Rate 70 /min BP Systolic Sitting 128 mmHg BP Diastolic Sitting 90 mmHg BMI (Body Mass Index) 42.4 kg/m2 08/06/2009 11:40am Weight 273.00 lb Heart Rate 100 /min BP Systolic Sitting 134 mmHg BP Diastolic Sitting 84 mmHg 06/23/2009 1:20pm Weight 257.25 lb Heart Rate 94 /min BP Systolic Sitting 136 mmHg BP Diastolic Sitting 89 mmHg 06/04/2009 9:27am Weight 255.00 lb Heart Rate 66 /min BP Systolic Sitting 124 mmHg BP Diastolic Sitting 84 mmHg 05/14/2009 9:11am Weight 247.00 lb Heart Rate 80 /min BP Systolic Sitting 126 mmHg BP Diastolic Sitting 86 mmHg 04/23/2009 9:51am Weight 252.50 lb Heart Rate 80 /min BP Systolic Sitting 124 mmHg BP Diastolic Sitting 88 mmHg 03/25/2009 9:26am Weight 253.00 lb Heart Rate 60 /min BP Systolic Sitting 128 mmHg BP Diastolic Sitting 80 mmHg 03/04/2009 11:32am Weight 260.00 lb Heart Rate 60 /min BP Systolic Sitting 132 mmHg BP Diastolic Sitting 88 mmHg Body Temperature 97.7 F 02/23/2009 3:10pm Weight 257.00 lb Heart Rate 99 /min BP Systolic Sitting 144 mmHg BP Diastolic Sitting 86 mmHg O2 % BldC Oximetry 96 % 12/29/2008 1:35pm Weight 250.00 lb Heart Rate 76 /min BP Systolic Sitting 128 mmHg BP Diastolic Sitting 68 mmHg 11/17/2008 10:48am Weight 249.00 lb Heart Rate 64 /min BP Systolic Sitting 120 mmHg BP Diastolic Sitting 76 mmHg 10/13/2008 9:45am Weight 248.00 lb Heart Rate 72 /min BP Systolic Sitting 142 mmHg BP Diastolic Sitting 84 mmHg 09/22/2008 2:11pm Weight 253.00 lb Heart Rate 74 /min BP Systolic Sitting 142 mmHg BP Diastolic Sitting 80 mmHg Body Temperature 97.6 F 09/04/2008 2:24pm Weight 253.00 lb Heart Rate 72 /min BP Systolic Sitting 132 mmHg BP Diastolic Sitting 80 mmHg 08/20/2008 11:27am Height 68 inches 5'8" Weight 253.00 lb Heart Rate 72 /min BP Systolic Sitting 140 mmHg BP Diastolic Sitting 80 mmHg BMI (Body Mass Index) 38.5 kg/m2 08/13/2008 10:49am Height 68 inches 5'8" Weight 253.00 lb Heart Rate 74 /min BP Systolic Sitting 138 mmHg BP Diastolic Sitting 76 mmHg BMI (Body Mass Index) 38.5 kg/m2 07/17/2008 9:30am Height 68 inches 5'8" Weight 249.00 lb Heart Rate 74 /min BP Systolic Sitting 130 mmHg BP Diastolic Sitting 80 mmHg BMI (Body Mass Index) 37.9 kg/m2 07/08/2008 9:02am Height 68 inches 5'8" Weight 249.00 lb Heart Rate 78 /min BP Systolic Sitting 142 mmHg BP Diastolic Sitting 78 mmHg BMI (Body Mass Index) 37.9 kg/m2 06/26/2008 8:17am Height 68 inches 5'8" Weight 249.00 lb Heart Rate 88 /min BP Systolic Sitting 122 mmHg BP Diastolic Sitting 68 mmHg Body Temperature 98.8 F BMI (Body Mass Index) 37.9 kg/m2 04/24/2008 10:14am Height 68 inches 5'8" Weight 242.00 lb Heart Rate 66 /min BP Systolic Sitting 138 mmHg BP Diastolic Sitting 80 mmHg BMI (Body Mass Index) 36.8 kg/m2 04/04/2008 1:03pm Height 68 inches 5'8" Weight 242.00 lb Heart Rate 76 /min BP Systolic Sitting 140 mmHg BP Diastolic Sitting 70 mmHg BMI (Body Mass Index) 36.8 kg/m2 Results Test Date Facility Test Result H/L Range Note Basic Metabolic 05/14/2010 [facility] Sodium 135 mmol/L 135- [address] [place] [address] [phone] Potassium 4.1 mmol/L 3.5-5.0 Chloride 101 mmol/L 101-111 Co2 (Carbon Dioxide) 27.0 mmol/L 22-32 Anion Gap 7.0 mmol/L 2-11 2 Glucose 85 mg/dL 70-100 3 BUN 10 mg/dL 6-24 Creatinine 0.60 mg/dL 0.50-1.40 One Over Creatinine 1.60 BUN/Creatinine Ratio 16.7 8-20 Calcium 9.5 mg/dL 8.1-9.9 4 eGFR Non- 115.4 > 60 eGFR 139.7 > 60 5 Urinalysis 05/07/2010 [facility] Ua Color YELLOW Yellow [address] [place] [address] [phone] Appearance-Urine CLEAR Clear Specific [place]-Ur 1.008 Low 1.010-1.030 Esterase-Urine NEGATIVE Negative Nitrite NEGATIVE Negative [id number] NEGATIVE Negative Protein-Urine NEGATIVE Negative PH-Urine 7.0 5-9 Blood-Urine NEGATIVE Negative Ketones-Urine NEGATIVE Negative Bilirubin-Ur NEGATIVE Negative Glucose-Urine NEGATIVE Negative Type And Screen 05/07/2010 [facility] Patient Blood Type A POSITIVE [address] [place] [address] [phone] Antibody Screen NEGATIVE Specimen Discard Date 05/21/10 6 CBC With 05/07/2010 [facility] White Blood 8.5 CUMM 4.8-10.8 Electronic Diff [address] [place] [address] [phone] Red Cell Count 4.74 CUMM 4.2-5.4 Hemoglobin 14.4 g/dL 12.0-16.0 Hematocrit 42 % 35-47 Mean Corpuscular Volume 89 um3 79-97 Mean Corpuscular Hemoglob 30 pg 27-31 Mean Corpuscular HGB Cone 34 g/dL 32-36 Redcell Distribution WDTH 15 % 10.5-15 Platelet Count 403 CUMM 150-450 Mean Platelet Volume 6.9 um3 Low 7.4-10.4 7 Manual Differential 05/07/2010 [facility] Polysegmented 66 % 38-[address] [place] [address] [phone] Lymphocyte 24 % Low 25-47 Monocyte 8 % 0-13 Eosinophil 1 % 0-6 Basophil 1 % 0-2 Absolute Neutrophil Count 5.6 RBC Morphology NORMAL Protime 05/07/2010 [facility] Inr 1.06 High 0.97-1.03 8 [address] [place] [address] [phone] Protime 12.5 SEC High 11.5-12.2 9 Laboratory test 05/07/2010 [facility] PTT (Aptt) 35.3 25.15- 38.53 10 finding [address] [place] [address] [phone] Laboratory test 12/07/2009 [facility] Fasting NEGATIVE Negative [address] [facility] [place] [address] Glucose [phone] Urinalysis 12/07/2009 [facility] Ua Color YELLOW Yellow W/Microscopic [address] [place] [address] [phone] Appearance-Urine CLEAR Clear Specific [place]-Ur 1.010 1.010-1.030 Esterase-Urine NEGATIVE Negative Nitrite NEGATIVE Negative [id number] NEGATIVE Negative Protein-Urine NEGATIVE Negative PH-Urine 6.0 5-9 Blood-Urine NEGATIVE Negative Ketones-Urine NEGATIVE Negative Bilirubin-Ur NEGATIVE Negative Glucose-Urine NEGATIVE Negative WBC-Urine 0-2 0-5 RBC-Urine 1-3 0-2 Epith Cells-Ur 1-3 None Bacteria-Urine 1+ None Laboratory test finding 12/07/2009 [facility] 1HR Glucose 80 mg/ dL 12 [address] [place] [address] [phone] Fasting Glucose 83 mg/dL 70-110 2HR Glucose 92 mg/dL 13 Basic Metabolic Panel 10/01/2009 [facility] Sodium 139 mmol/L 135-145 [address] [place] [address] [phone] Potassium 4.7 mmol/L 3.5-5.0 Chloride 101 mmol/L 101-111 Co2 (Carbon Dioxide) 32.0 mmol/L 22-32 Anion Gap 6.0 mmol/L 2-11 14 Glucose 82 mg/dL 70-100 15 BUN 11 mg/dL 6-24 Creatinine 0.60 mg/dL 0.50-1.40 One Over Creatinine 1.60 BUN/Creatinine Ratio 18.3 8-20 Calcium 10.2 mg/dL High 8.1-9.9 16 eGFR Non- 116.0 > 60 eGFR 140.3 > 60 17 Laboratory test 06/04/2009 [facility] TSH 1.18 MIU/ML 0.34- 5.[address] [place] [address] [phone] Comp Metabolic 06/04/2009 [facility] Sodium 137 mmol/L 135- [address] [place], [place] [id number] [phone] Potassium 4.3 mmol/L 3.5-5.0 Chloride 100 mmol/L Low 101-111 Co2 (Carbon Dioxide) 28.0 mmol/L 22-32 Anion Gap 9.0 mmol/L 2-11 18 Glucose 78 mg/dL 70-100 19 BUN 10 mg/dL 6-24 Creatinine 0.60 mg/dL 0.50-1.40 One Over Creatinine 1.60 BUN/Creatinine Ratio 16.7 8-20 Calcium 9.1 mg/dL 8.1-9.9 20 Total Protein 7.2 GM/DL 6.2-8.1 Albumin 3.8 GM/DL 3.6-5.4 Globulin 3.4 GM/DL 2-4 Albumin/Globulin Ratio 1.1 1-3 Bilirubin Total 0.5 mg/dL 0.4-1.5 21 Alkaline Phosphatase 86 U/L 30-110 Alt (SGPT) 14 U/L 14-54 Ast (Sgot) 15 U/L 12-42 eGFR Non- 116.0 > 60 eGFR 140.3 > 60 22 Laboratory 06/26/2008 [facility] Throat Culture NORMAL 23 test finding [address] [place] [address] <SEE NOTE> [phone] DS3 2008 [facility] Amphetamines NONE None [address] [place] [address] [phone] Barbituates Urine Screen NONE DETECTED None Detect Benzodiazepine Ur Screen NONE DETECTED None Detect Cannabinoid Urine Screen NONE DETECTED None Detect Cocaine Metabolites Urine NONE DETECTED None Detect Opiates Urine Screen POSITIVE Abnormal None Detect PCP Urine Screen NONE DETECTED None Detect 24 P33S 04/09/2008 [facility] Sodium 136 mmol/L 135-[address] [place] [address] [phone] Potassium 3.8 mmol/L 3.5-5.0 Chloride 105 mmol/L 101-111 Co2 (Carbon Dioxide) 26.0 mmol/L 22-32 Anion Gap 5.0 mmol/L 2-11 25 Glucose 101 mg/dL 70-105 BUN 10 mg/dL 6-24 Creatinine 0.8 mg/dL 0.5-1.4 One Over Creatinine 1.25 BUN/Creatinine Ratio 12.5 8-20 Calcium 8.5 mg/dL 8.1-9.9 26 Total Protein 7.3 GM/DL 6.2-8.1 Albumin 3.5 GM/DL Low 3.6-5.4 Globulin 3.8 GM/DL 2-4 Albumin/Globulin Ratio 0.9 Low 1-3 Bilirubin Total 0.6 mg/dL 0.4-1.5 Alkaline Phosphatase 80 U/L 30-110 Alt (SGPT) 15 U/L 14-54 Ast (Sgot) 17 U/L 12-42 Laboratory test 04/09/2008 [facility] TSH 0.83 MIU/ML 0.34- 5.[address] [place] [address] [phone] CBC With 04/09/2008 [facility] White Blood 8.4 CUMM 4.8-10.8 Electronic Diff [address] [place] [address] [phone] Red Cell Count 4.76 CUMM 4.2-5.4 Hemoglobin 13.9 g/dL 12.0-16.0 Hematocrit 41 % 35-47 Mean Corpuscular Volume 85 um3 79-97 Mean Corpuscular Hemoglob 29 pg 27-31 Mean Corpuscular HGB Cone 34 g/dL 32-36 Redcell Distribution WDTH 17 % High 10.5-15 Platelet Count 449 CUMM 150-450 Mean Platelet Volume 6.8 um3 Low 7.4-10.4 Gran % 76.0 % 38-83 Lymph % 18.2 % Low 20-45 Mononuclear % 4.4 % 1-9 Eosinophil % 1.2 % 0-6 Basophil % 0.2 % 0-2 Abs Lymphs 1.5 1.0-4.8 Abs Mononuclear 0.4 0-0.8 Absolute Neutrophil Count 6.3 1.5-7.7 Abs Eosinophils 0.1 0-0.6 Abs Basophils 0 0-0.2 27 1 AA 05/17/10 2 Anion gap measurement may be of limited value in the presence of any alkalosis, especially in a combined acid base disorder. . 3 Note change in reference range as of 05/08/08. The change was based on recommendations from the [place] [employer]. 4 Please note change in reference range effective 08 . 5 Because ethnic data is not always readily available, this report includes an eGFR for both -Americans and non- Americans. The National Kidney Disease Education Program (NKDEP) does not endorse the use of the MDRD equation for patients that are not between the ages of 18 and 70, are , have extremes of body size, muscle mass, or nutritional status, or are non- or non-. According to the National Kidney Foundation, irrespective of diagnosis, the stage of the disease is based on the level of kidney function: Stage Description GFR(mL/min/1.73 m(2)) 1 Kidney damage with normal or decreased GFR 90 2 Kidney damage with mild decrease in GFR 60-89 3 Moderate decrease in GFR 30-59 4 Severe decrease in GFR 15-29 5 Kidney failure <15 (or dialysis) 6 PREADMISSION TESTING SAMPLES FOR BLOOD BANK WILL BE HELD FOR 14 DAYS FROM THE DATE OF COLLECTION *IF* THE FOLLOWING CRITERIA ARE MET: 1) THE PATIENT HAS *NOT* BEEN IN THE LAST 3 MONTHS. 2) THE PATIENT HAS *NOT* BEEN TRANSFUSED IN THE LAST 3 MONTHS. PREADMISSION TESTING SAMPLES WILL *NOT* BE HELD FOR 14 DAYS FROM PATIENTS WHO IN THE LAST 3 MONTHS: 1) HAVE BEEN 2) HAVE BEEN TRANSFUSED THESE PATIENTS *MUST* BE COLLECTED WITHIN 3 DAYS OF THE SURGERY DATE. 7 Imm. NE 1 8 Recommended INR for Patients on Oral Anticoagulants Prophylaxis 2.0 - 3.0 Treatment of thrombosis 2.0 - 3.0 Prevention of embolism 2.0 - 3.0 Prevention of embolism from prosthetic heart valves 2.5 - 3.5 9 DIAGNOSIS,TREATMENT,AND THERAPY MUST BE BASED ON THE INR VALUE ALONE. 10 PLEASE NOTE NEW REFERENCE RANGE EFFECTIVE 09. 11 2HR GTT FAST URINE FSTNG URINE GLU from [id number]. 12 REFERENCE RANGE: 20-50 MG/DL ABOVE FASTING 13 REFERENCE RANGE: 5-15 MG/DL ABOVE FASTING 14 Anion gap measurement may be of limited value in the presence of any alkalosis, especially in a combined acid base disorder. . 15 Note change in reference range as of 05/08/08. The change was based on recommendations from the [place] [employer]. 16 Please note change in reference range effective 08 . 17 Because ethnic data is not always readily available, this report includes an eGFR for both -Americans and non- Americans. The National Kidney Disease Education Program (NKDEP) does not endorse the use of the MDRD equation for patients that are not between the ages of 18 and 70, are , have extremes of body size, muscle mass, or nutritional status, or are non- or non-. According to the National Kidney Foundation, irrespective of diagnosis, the stage of the disease is based on the level of kidney function: Stage Description GFR(mL/min/1.73 m(2)) 1 Kidney damage with normal or decreased GFR 90 2 Kidney damage with mild decrease in GFR 60-89 3 Moderate decrease in GFR 30-59 4 Severe decrease in GFR 15-29 5 Kidney failure <15 (or dialysis) 18 Anion gap measurement may be of limited value in the presence of any alkalosis, especially in a combined acid base disorder. . 19 Note change in reference range as of 05/08/08. The change was based on recommendations from the [place] [employer]. 20 Please note change in reference range effective 08 . 21 A metabolite of Naproxen, O-desmethylnaproxen, has been shown to interfere with the Jendrassik-Ryder method for measuring total bilirubin. Samples from patients who have taken Naproxen have shown spurious elevation in total bilirubin levels. 22 Because ethnic data is not always readily available, this report includes an eGFR for both -Americans and non- Americans. The National Kidney Disease Education Program (NKDEP) does not endorse the use of the MDRD equation for patients that are not between the ages of 18 and 70, are , have extremes of body size, muscle mass, or nutritional status, or are non- or non-. According to the National Kidney Foundation, irrespective of diagnosis, the stage of the disease is based on the level of kidney function: Stage Description GFR(mL/min/1.73 m(2)) 1 Kidney damage with normal or decreased GFR 90 2 Kidney damage with mild decrease in GFR 60-89 3 Moderate decrease in GFR 30-59 4 Severe decrease in GFR 15-29 5 Kidney failure <15 (or dialysis) 23 NORMAL THROAT YULISA 24 THE URINE SPECIMEN WAS TESTED AT THE LISTED CUTOFFS: DRUG CLASS TEST LEVEL (NG/ML) AMPHETAMINES 300 BARBITUATES 200 BENZODIAZEPINE METABOLITES 200 COCAINE METABOLITES 300 CANNABINOIDS 25 OPIATES 200 PCP 25 THIS IS A SCREENING PROCEDURE. POSITIVE RESULTS ARE NOT CONFIRMED. SPECIMEN WAS RECEIVED WITHOUT CHAIN OF CUSTODY. RESULTS SHOULD BE USED FOR MEDICAL PURPOSES ONLY. . 25 Anion gap measurement may be of limited value in the presence of any alkalosis, especially in a combined acid base disorder. . 26 Please note change in reference range effective 08 . 27 Lymphopenia % Procedures Date Code Description Status 09/02/2015 Inject/Drain Joint/Bursa Major W/O US Completed 08/26/2015 Inject/Drain Joint/Bursa Major W/O US Completed 10/28/2014 Inject/Drain Joint/Bursa Major W/O US Completed 10/01/2014 Inject/Drain Joint/Bursa Major W/O US Completed 05/02/2014 Inject/Drain Joint/Bursa Major W/O US Completed 12/06/2013 87133 Xray Knee 3 Views Completed 12/06/2013 51349 Xray Knee 3 Views Completed 01/10/2013 96310 Xray Knee 3 Views Completed 01/10/2013 31389 Rad Exam; Knee, Ap&L Completed 01/10/2013 87367 Inject/Drain Joint/Bursa Major W/O US Completed 02/24/2012 76252 Rad Exam; Knee, Ap&L Completed 02/24/2012 29529 Rad Exam; Knee, Ap&L Completed 02/24/2012 96385 Xray Knee 3 Views Completed 02/24/2012 15860 Xray Knee 3 Views Completed 05/31/2011 90768 Xray Knee 3 Views Completed 05/17/2010 23539 TKR Total Knee Replacement Completed 05/17/2010 92507 TKR Total Knee Replacement Completed 02/26/2010 31903 Inject/Drain Joint/Bursa Major W/O US Completed 12/22/2009 02096 Rad Exam; Knee, Ap&L Completed 12/22/2009 52801 Rad Exam; Knee, Ap&L Completed 12/22/2009 07607 Inject/Drain Joint/Bursa Major W/O US Completed 06/24/2009 [id number] Mammogram Completed 08/15/2008 [id number] Mammogram Completed Encounters Type Date Location Provider Dx Diagnosis Office Visit 01/09/2019 Orthopedic Ezequiel Horton, S83.411S Sprain of medial 10:30a Services Of Jermain Verduzco collateral ligament of right knee, sequela M70.51 Other bursitis of knee, right knee M76.31 Iliotibial band syndrome, right leg Office Visit 10/28/2015 1:00p Orthopedic Isha M54.32 Sciatica, left Services Of SIRENA Cormier side C.M.A. M79.605 Pain in left leg Office Visit 09/24/2015 Orthopedic Ezequiel M54.32 Sciatica, left side 3:30p Services Of Dax Horton C.M.A. 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 knee Office Visit 08/26/2015 Orthopedic Emily M17.12 Unilateral primary 1:00p Services Of DEBORAH Estrada osteoarthritis, left C.M.A. knee Office Visit 11/25/2014 Orthopedic Isha 715.16 Osteoarthrosis 1:00p Services Of SIRENA Cormier Localized Prim Lower C.M.A. Leg Office Visit 11/12/2014 Orthopedic Ezequiel 715.16 Osteoarthrosis 9:45a Services Of Dax Horton Localized Prim Lower C.M.A. Leg Office Visit 10/28/2014 Orthopedic Ezequiel 726.61 Bursitis Tendinitis 10:45a Services Of Dax Horton Anserinus C.M.A. Office Visit 10/01/2014 Orthopedic Isha 715.16 Osteoarthrosis 10:45a Services Of SIRENA Cormier Localized Prim Lower C.M.A. Leg Office Visit 07/04/2014 Orthopedic Ezequiel 715.16 Osteoarthrosis 11:30a Services Of Dax Horton Localized Prim Lower C.M.A. Leg Office Visit 06/04/2014 Orthopedic Isha 715.16 Osteoarthrosis 3:30p Services Of SIRENA Cormier Localized Prim Lower C.M.A. Leg Office Visit 05/02/2014 Orthopedic Isha 715.16 Osteoarthrosis 1:30p Services Of SIRENA Cormier Localized Prim Lower C.M.A. Leg Office Visit 01/31/2014 Orthopedic Ezequiel 726.61 Bursitis Tendinitis 10:15a Services Of Dax Horton Anserinus C.M.A. 715.16 Osteoarthrosis Localized Prim Lower Leg Office Visit 12/06/2013 1:30p Orthopedic Ezequiel Horton 726.61 Bursitis Services Of Dax vAelarinidevaughn Pes C.M.A. Ansdianeus 715.16 Osteoarthrosis Localized Prim Lower Leg V54.81 Aftercare Following Joint Replacement V43.65 Knee Replacement By Other Means Office Visit 03/11/2013 9:30a Orthopedic Maldonado Sullivan 726.61 Bursitis Services Of DEBORAH Hills Tendinitis Pes C.M.A. Anserinus Office Visit 01/10/2013 11:45a Orthopedic Ezequiel Horton 726.61 Bursitis Services Of Dax Tendinidevaughn Pes C.M.A. Ansdianeus 724.4 Neuritis Or Radiculitis Thoracic Or Lumbosacral Unspec Office Visit 10/03/2012 3:15p Orthopedic Services Brigida Armstrong 719.46 Pain Joint Of C.M.AEma THORNTON-Salvador Lower Leg Office Visit 07/25/2012 9:00a Orthopedic Services Ezequiel Horton 719.46 Pain Joint Of CShaan Verduzco Lower Leg 728.89 Muscle Disorders Other Office Visit 05/31/2012 9:15a Orthopedic Brigida 719.46 Pain Joint Lower Leg Services Of DEBORAH Armstrong C.MEmaAEma Office Visit 04/12/2012 9:00a Orthopedic Ezequiel 719.46 Pain Joint Lower Leg Services Of Jermain Horton M.D. Office Visit 02/24/2012 9:15a Orthopedic Ezequiel 715.96 Osteoarthrosis Services Of Dena Horton Or Salvador.MJun Verduzco Localized Lower Leg 719.46 Pain Joint Lower Leg V54.81 Aftercare Following Joint Replacement V43.65 Knee Replacement By Other Means Office Visit 05/31/2011 1:00p Orthopedic Ezequiel Horton 726.61 Bursitis Services Of Dax Tendinitis Pes KangMJun Celeste 719.46 Pain Joint Lower Leg Office Visit 09/07/2010 Orthopedic Ezequiel 715.96 Osteoarthrosis 1:45p Services Of Dax Horton Unspec Genlzd Or C.M.A. Localized Lower Leg Office Visit 05/10/2010 DO Not Use Washcloth Folder Ramiro Randhawa V72.81 Examination 3:40p AT [facility] Dax,FACP Cardiovascular 715.16 Osteoarthrosis Localized Prim Lower Leg 401.1 Hypertension Benign 311 Depressive Disorder Not Elsewhere Spec 241.0 Goiter Nontoxic Uninodular Office Visit 04/08/2010 Orthopedic Ezequiel 715.96 Osteoarthrosis 9:30a Services Of Dax Horton Unspec Genjessicad Or C.M.AEma Localized Lower Leg Office Visit 04/05/2010 DO Not Use Cat Randhawa 716.96 Arthropathy Unspec 11:00a AT [facility] Magi Lower Leg Dax,FACP 278.01 Obesity Morbid 300.01 Panic Disorder W/O Agoraphobia Office Visit 02/26/2010 10:30a Orthopedic Liz Robin 716.96 Arthropathy Unspec Services Of MELISSA Lower Leg C.M.AEma 719.46 Pain Joint Lower Leg Office Visit 02/09/2010 2:40p DO Not Use Washcloth Folder Jabier, 278.01 Obesity Morbid AT Mark Hutton M.D. 724.3 Sciatica 305.1 Tobacco Use Disorder 300.01 Panic Disorder W/O Agoraphobia 401.1 Hypertension Benign 724.9 Back Disorders Other Unspec 521.03 Dental Caries Extending Into Pulp Office Visit 01/06/2010 1:30p Orthopedic Liz Robin, 716.96 Arthropathy Unspec Services Of [place] Lower Leg C.M.AEma 844.9 Sprains & Strains Knee & Leg Unspec Office Visit 12/28/2009 11:00a DO Not Use Washcloth Folder Jabier, 278.01 Obesity Morbid AT Mark Hutton M.D. 305.1 Tobacco Use Disorder 729.5 Pain In Limb 724.3 Sciatica 719.46 Pain Joint Lower Leg 300.01 Panic Disorder W/O Agoraphobia 724.2 Lumbago 401.1 Hypertension Benign Office Visit 12/22/2009 Orthopedic Dominique 716.96 Arthropathy 9:00a Services Of Dena Chand Lower Leg C.M.A. R.S.A.-O Office Visit 11/25/2009 DO Not Use Washcloth Folder Jabier, 278.01 Obesity Morbid 10:00a AT Mark Hutton M.D. 788.43 Nocturia 305.1 Tobacco Use Disorder 724.9 Back Disorders Other Unspec 729.5 Pain In Limb 724.3 Sciatica 719.46 Pain Joint Lower Leg Office Visit 10/27/2009 11:20a DO Not Use Washcloth Folder Thananart, 300.02 Anxiety Disorder AT Mark Nolen M.D. Generalized 300.01 Panic Disorder W/O Agoraphobia Office Visit 09/28/2009 11:40a DO Not Use Washcloth Folder Thananart, 300.02 Anxiety Disorder AT Mark Nolen M.D. Generalized 724.9 Back Disorders Other Unspec V58.69 Medications Retirement (Current) Use Encounter Office Visit 08/24/2009 3:40p DO Not Use Washcloth Folder Thananart, 300.02 Anxiety Disorder AT Mark Nolen M.D. Generalized 724.9 Back Disorders Other Unspec Office Visit 08/06/2009 11:40a DO Not Use Washcloth Folder AT Tamanna Oro, 787.1 Heartburn [facility] Dax 300.02 Anxiety Disorder Generalized 729.5 Pain In Limb Office Visit 06/23/2009 1:20p DO Not Use Washcloth Folder Stevanovic, 300.02 Anxiety Disorder AT [facility] Dax Hutton Generalized 729.5 Pain In Limb 729.1 Myalgia & Myositis Unspec 292.0 Drug Withdrawal Office Visit 06/04/2009 9:40a DO Not Use Washcloth Folder Thananart, 300.02 Anxiety Disorder AT Slatonleigh Nolen M.D. Generalized 724.9 Back Disorders Other Unspec 780.57 Unspecified Sleep Apnea V58.69 Medications Retirement (Current) Use Encounter Office Visit 05/14/2009 9:00a DO Not Use Washcloth Folder Thananart, 300.02 Anxiety Disorder AT Mark Nolen M.D. Generalized 719.47 Pain Joint Ankle & Foot 724.3 Sciatica 724.9 Back Disorders Other Unspec Office Visit 04/23/2009 8:40a DO Not Use Washcloth Folder Thananart, Tamanna, 719.47 Pain Joint AT Mark Verduzco Ankle & Foot 300.02 Anxiety Disorder Generalized 729.5 Pain In Limb Office Visit 03/25/2009 9:40a DO Not Use Washcloth Folder Thananart, 300.02 Anxiety Disorder AT Mark Nolen M.D. Generalized 719.47 Pain Joint Ankle & Foot 796.2 Blood Pressure Reading Elevated W/O Hypertension Office Visit 03/04/2009 11:20a DO Not Use Washcloth Folder Thananart, 300.02 Anxiety Disorder AT Mark Nolen M.D. Generalized 796.2 Blood Pressure Reading Elevated W/O Hypertension 719.47 Pain Joint Ankle & Foot Office Visit 02/23/2009 3:00p DO Not Use Washcloth Folder Thananart, 300.02 Anxiety Disorder AT Mark Nolen M.D. Generalized 719.47 Pain Joint Ankle & Foot 796.2 Blood Pressure Reading Elevated W/O Hypertension Office Visit 12/29/2008 2:00p DO Not Use Washcloth Folder Thananart, 300.02 Anxiety Disorder AT Mark Nolen M.D. 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 Office Visit 09/22/2008 2:30p DO Not Use Washcloth Folder Thananart, 461.8 Sinusitis Acute AT [facility] Dax Nolen Other 300.02 Anxiety Disorder Generalized Office Visit 09/04/2008 2:30p DO Not Use Washcloth Folder Thananart, 300.02 Anxiety Disorder AT [facility] Dax Nolen 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 Office Visit 08/20/2008 11:30a DO Not Use Washcloth Folder Thananart, 327.02 Insomnia Due To AT [facility] Dax Nolen Mental Disorder 300.02 Anxiety Disorder Generalized 611.72 Lump Or Mass Breast Office Visit 08/13/2008 11:30a DO Not Use Washcloth Folder Thananart, Tamanna, 611.72 [facility] 07/17/2008 9:30a DO Not Use Washcloth Folder Thananart, Tamanna, 729.5 Pain [facility] Limb [facility] 300.02 Anxiety Disorder Generalized Office Visit 07/08/2008 9:00a DO Not Use Washcloth Folder AT ThanTamanna tsai, 729.5 [facility]imb [facility] 300.02 Anxiety Disorder Generalized 724.3 Sciatica Office Visit 06/26/2008 8:30a DO Not Use Washcloth Folder Thananart, 462 Pharyngitis Acute AT [facility] Dax Nolen 300.02 Anxiety Disorder 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 Reading Elevated W/O Hypertension 780.79 Malaise And Fatigue Other 782.1 Rash & Other Nonspec Skin Eruption 309.28 Adjustment Disorder With Anxiety/Depression Plan of Treatment Future Appointment(s):03/27/2019 8:15 am - Ezequiel Horton M.D. at [facility]02/13/2019 - Ezequiel Horton M.D.S83.411S Sprain of medial collateral ligament of right knee, [id number] Instability of internal right knee prosthesis, subsequent enFollow up:2 weeks after surgery
[2019-03-11] MEDS ORDERED: ROPIVACAINE 5 MG/ML 30 ML BTL (0.5%) ONE (09:16)
[2019-03-11] MEDS ORDERED: KETAMINE HCL* 50 MG/ML 10 ML VIAL ONE (09:16)
[2019-03-11] MEDS ORDERED: Dexamethasone IV* 4 MG/ML 1 ML (4 MG) ONE (09:16)
[2019-03-11] MEDS ORDERED: Lidocaine 2% MPF* 2 ML VIAL ONE (09:16)
[2019-03-11] MEDS ORDERED: Midazolam* 1 MG/ML 10 ML VIAL (10 MG) ONE (09:16)
[2019-03-11] MEDS ORDERED: Ondansetron INJ* 2 MG/ML VIAL ONE (09:16)
[2019-03-11] MEDS ORDERED: fentaNYL* 50 MCG/ML 5 ML VIAL (250 MCG VIAL) ONE ×2 (09:16→11:24)
[2019-03-11] MEDS ORDERED: Propofol* 10 MG/ML 20 ML BTL ONE (09:16)
[2019-03-11] MEDS ORDERED: Bupivacaine 0.25% W/EPI* 10 ML SDV ONE ×2 (10:36→11:15)
[2019-03-11] MEDS ORDERED: Ondansetron INJ* 2 MG/ML VIAL IV PRN ×2 (12:16→13:04)
[2019-03-11] MEDS ORDERED: Naloxone* 0.4 MG/ML 1 ML VIAL IV PRN (12:16)
[2019-03-11] MEDS ORDERED: HYDROmorphone INJ1* 1 MG/ML SYRINGE IV PRN (12:16)
[2019-03-11] MEDS ORDERED: Ondansetron ODT TAB* 4 MG PO PRN (13:04)
[2019-03-11] MEDS ORDERED: Cyclobenzaprine TAB* 10 MG PO PRN (13:04)
[2019-03-11] MEDS ORDERED: Morphine INJ* 2 MG/ML 1 ML SYRINGE (TWO MG - NEW SYRINGE VERSION) IV PRN (13:04)
[2019-03-11] MEDS ORDERED: diPHENhydraMINE PO* 25 MG PO PRN (13:04)
[2019-03-11] MEDS ORDERED: diPHENhydraMINE IV* 50 MG/ML 1 ml VIAL (BENADRYL) IV PRN (13:04)
[2019-03-11] MEDS ORDERED: Magnesium Hydroxide LIQ* 30 ML UDC PO PRN (13:04)
[2019-03-11] MEDS ORDERED: fentaNYL* 50 MCG/ML 2 ML VIAL (100 MCG VIAL) ONE (13:14)
[2019-03-11] MEDS: fentaNYL* 50 MCG/ML 2 ML VIAL (100 MCG VIAL) IV PRN ×2 (13:15→13:27)
[2019-03-11] MEDS ORDERED: Acetaminophen TAB* 325 MG PO SCH (14:00)
[2019-03-11] MEDS ORDERED: traMADol TAB* 50 MG PO SCH (14:00)
[2019-03-11] MEDS ORDERED: traMADol TAB* 50 MG ONE (14:14)
[2019-03-11] MEDS ORDERED: oxyCODONE/Acetamin 5/325 MG* TAB PO PRN (14:22)
[2019-03-11] MEDS ORDERED: oxyCODONE TAB* 5 MG TAB ONE (14:25)
[2019-03-11] MEDS: oxyCODONE TAB* 5 MG TAB PO PRN ×2 (14:27→23:28)
--- NOTE | 2019-03-11 14:40 | OP ---
DATE OF OPERATION: 03/11/19 - ROOM #346 DATE OF : 67 ATTENDING SURGEON: Ezequiel Horton MD BANKMAN: Dara Dao RPA ANESTHESIA: Regional and general PRE-OP DIAGNOSIS: Instability/medial collateral ligament insufficiency, right total knee arthroplasty. POST-OP DIAGNOSIS: Broken post right total knee polyethylene. OPERATIVE PROCEDURE: Right total knee polyethylene exchange. ESTIMATED BLOOD LOSS: Less than 50 cc. COMPLICATIONS: None. INDICATIONS: Ms. Cortes is a 53-year-old female who 9 years ago underwent a right total knee arthroplasty. She had done well getting back to all activities. She even had moved away and had been doing well in [place], [place]. Several months ago, she had fallen and since then has been having significant troubles with right knee pain as well as instability. She had seen some providers down there, but she was not thrilled with the treatment so she had followed up in the office with me. At that time, I found her to have some very specific medial instability, as I could open the knee up and we had talked some about using a knee immobilizer to allow her MCL to heal. She then presented several weeks later and she had the same instability and moreover I could demonstrate that when she was flexed all the way back and rotating her that it appeared her post would disengage and the knee would slide in odd ways. I discussed with her that converting the knee to either a LCCK, which is a constrained knee or a hinged knee should work well to decrease her pain and give her the instability she needs to once again have a good reliable knee. Risks of surgery such as infection, scar formation, stiffness, DVT, pulmonary embolism and loosening of the components as a constrained knee has more troubles than regular knees were discussed and she had wished to proceed. DESCRIPTION OF PROCEDURE: The patient had a femoral neck block placed in the holding area and was brought back to the OR. General anesthesia was introduced. Rangel catheter was placed. Tourniquet was placed over the proximal right thigh but was not used during the case. Right knee was prepped and then draped. It could be seen how she had some very specific instability as with the knee out straight, I could bend her to approximately 35 degrees of valgus and similarly I could bring her into about 15 or 20 degrees of varus. She flexed easily. Skin over the incision area was infiltrated using 0.25% Marcaine with epinephrine and midline incision was made using the old scar. Incision was carried down through the skin and subcutaneous scar and small bleed was encountered and ligated using electro-cautery. Extensor mechanism was exposed and a sharp parapatellar arthrotomy was made. A bit of clear yellowish joint fluid was encountered. She had quite a bit of synovium present and this was taken down from around the edges of the patella. Similarly sharp tissues were sharply elevated from the medial side of the tibia and synovium was taken down from the lip of the tibial component. With flexing the knee up and subluxating the patella laterally, however, it could be seen where she had a broken post. Post was stuck into the notch with some of the synovium and just with levering it out, the piece had shot out and hit the floor. It was, however, recovered as part of the specimen. Polyethylene was then removed and it could be seen how this instead of having a PS polyethylene, this appeared more like a PC:L sparring polyethylene, where the post was absolutely broken off. I had not expected a broken post and the trial polyethylene number was called up from . Knee was copiously pulse lavaged and I continued the little dissection around the femoral component as well as the edge of the tibia , so that I could start removing cement if the trial polyethylene proved to be insufficient. The first set unfortunately instead of having the NexGen implants were the Persona implants. But while I had those implants, I used a 12, she had a 14 polyethylene in there and with a 12 not fitting properly and being perhaps 2 mm high, this appeared to almost fully restore her stability. Therefore a further dissection was not carried out. Knee was copiously pulse lavaged while waiting and eventually the NexGen trial polyethylenes were brought up. She was trialed with a 14 and when the knee was locked out straight she was absolutely stable. In a little bit of flexion, she had a tiny bit of wobble which then disappeared with further flexion. She was nicely stable throughout. Considering that I was not thrilled to place a hinge in someone as young as she was as that would loosen as time would go by, decision was made to stay with these implants, to just place a new polyethylene. New poly was called for and delivered on to the field. Knee was again copiously pulse lavaged. Polyethylene for a D-femur and a 5 tibia was then snapped into place and she had the same wonderful motion and stability. Knee was again copiously pulse lavaged and parapatellar arthrotomy was repaired using interrupted #1 Vicryl sutures. Subcutaneous tissues reapproximated using 2-0 Vicryl. Skin was closed using balwinder. Remainder of the Marcaine was injected into the knee joint. Sterile dressing and Cryo/Cuff were applied in the OR. The patient was awakened in the OR and was stable on transfer to the recovery room. [id number]/[facility] #: [id number] [facility] SYSTEM[facility]
[2019-03-11] MEDS: clonazePAM TAB(*) 1 MG PO SCH ×2 (15:41→20:09)
[2019-03-11] MEDS: D5W 1/2 NS 1000 ML BAG* 1,000 ML IV SCH (16:10)
[2019-03-11] MEDS: Acetaminophen TAB* 325 MG PO SCH (17:24)
[2019-03-11] MEDS: oxyCODONE/Acetamin 5/325 MG* TAB PO PRN (18:36)
--- NOTE | 2019-03-11 19:00 | CONS ---
CONSULTATION REPORT: DATE OF CONSULT: 03/11/19 PRIMARY CARE PHYSICIAN: Dr. Glass. CONSULTING SERVICE: Orthopedic surgery. CHIEF COMPLAINT: Right knee pain. HISTORY OF PRESENT ILLNESS: This is a 53-year-old female with history of a right total knee replacement who had been complaining of pain in the right knee for several months and was noted to have MCL insufficiency. She was taken to the OR today with plans for a knee revision; however, the procedure was converted to right total knee polyethylene exchange. The procedure was reportedly uneventful and she was seen in PACU. She has no pain. She is eating a Pop-Tarts and she has no complaints. PAST MEDICAL HISTORY: Hypertension, anxiety, chronic pain syndrome, and a thoracic lumbar compression fracture. HOME MEDICATIONS: 1. She uses a CBD oil vape. 2. Oxycodone 10 mg b.i.d. p.r.n. for pain. 3. Klonopin 1 mg t.i.d. p.r.n. for anxiety. 4. HCTZ 25 mg daily. FAMILY HISTORY: Significant for her mother who had a stroke and her father had heart disease. SOCIAL HISTORY: She lives alone in [place]. She works at the [employer]. She smokes a half a pack of cigarettes per day and uses no illicit drugs. REVIEW OF SYSTEMS: Negative for chest pain, shortness of breath, nausea, vomiting, constipation, diarrhea, headache, fevers, chills. PHYSICAL EXAM: Temperature 97.5, heart rate 67, respiratory rate 16, pulse ox 100% on room air, blood pressure 141/75. General: Alert, well-appearing young female, in no distress, resting comfortably in the PACU. HEENT: Pupils equal, round, and reactive to light. Oral mucosa is moist. Neck: No JVP. No adenopathy. Chest: Regular rate and rhythm. No murmurs. PMI nondisplaced. Lungs are clear anteriorly. Abdomen is soft, nontender, nondistended. No guarding or rebound. No CVA tenderness. Extremities: Her right knee is in a cryo unit. Her DP and PT pulses are 2+ bilaterally and her sensation is intact bilaterally. ASSESSMENT AND PLAN: This is a 53-year-old woman with history of right knee replacement, complicated by knee instability over the past few months, who underwent revision surgery today with a polyethylene exchange. 1. Postop day #0, anticoagulation has been ordered by orthopedic surgery as well as pain management. 2. Hypertension. She is only on hydrochlorothiazide at home. I see you have continued that. Her blood pressure is currently acceptable. 3. Chronic pain syndrome. Continue her home oxycodone with the addition of additional p.r.n. meds. 4. Anxiety. Clonazepam is being continued. She is interested in getting off the clonazepam. I would recommend starting an SSRI as an outpatient; however, I will defer this to her primary care provider as she has a good relationship with Dr. Glass. Thank you for allowing us to participate in the care of this patient. Please do not hesitate to call us with any questions or concerns. [id number]/[facility] #: [id number] JACQUELINE
[2019-03-11] MEDS: ceFAZolin 1 GM ADVAN(*) 1 GM in NS 0.9% 50 ML* 50 ML IVPB SCH (19:23)
[2019-03-11] MEDS: Magnesium Hydroxide LIQ* 30 ML UDC PO SCH (20:10)
[2019-03-12] MEDS: Acetaminophen TAB* 325 MG PO SCH ×3 (00:55→17:58)
[2019-03-12] MEDS: oxyCODONE/Acetamin 5/325 MG* TAB PO PRN ×5 (02:03→23:39)
[2019-03-12] MEDS: ceFAZolin 1 GM ADVAN(*) 1 GM in NS 0.9% 50 ML* 50 ML IVPB SCH ×2 (03:16→12:17)
[2019-03-12] MEDS: oxyCODONE TAB* 5 MG TAB PO PRN ×4 (04:30→21:24)
[2019-03-12 06:02] LABS: Hematocrit 39 % (35-47); Hemoglobin 12.8 g/dL (12.0-16.0); Mean Platelet Volume 8.1 fL (7.4-10.4); Platelet Count 267 10^3/uL (150-450)
[2019-03-12] MEDS: D5W 1/2 NS 1000 ML BAG* 1,000 ML IV SCH (06:18)
[2019-03-12 06:19] LABS: CO2 Carbon Dioxide 23 mmol/L (22-32); Calcium 9.5 mg/dL (8.6-10.3); Chloride 105 mmol/L (101-111); Sodium 138 mmol/L (135-145)
[2019-03-12 06:24] LABS: BUN/Creatinine Ratio 15.9 (8-20); Blood Urea Nitrogen 10 mg/dL (6-24); EGFR African American 120.1 (>60); EGFR Non-African American 99.2 (>60); Glucose 119 mg/dL (70-100)
[2019-03-12 06:29] LABS: Anion Gap 10 mmol/L (2-11)
[2019-03-12] MEDS: Hydrochlorothiazide TAB* 25 MG PO SCH (08:31)
[2019-03-12] MEDS: clonazePAM TAB(*) 1 MG PO SCH ×3 (08:31→21:07)
[2019-03-12] MEDS: Apixaban* 2.5 MG TAB PO SCH ×2 (08:31→21:07)
[2019-03-12] MEDS: Magnesium Hydroxide LIQ* 30 ML UDC PO SCH ×2 (08:35→21:10)
--- NOTE | 2019-03-12 10:22 | PN ---
Progress Note - Progress Note Date of Service: 03/12/19 SOAP: Subjective: []Pt seen at bedside she is feeling well, her pain is well controlled this morning. Denies CP, SOB, dizziness, nausea. Objective: []Gen: Appears well, NAD RLE: Right knee dressing changed, incision CDI, thigh soft, DF/PF intact, DP2+, sensation intact to light touch distally Calves supple and nontender without erythema, edema or palpable cords Assessment: []POD 1 sp right knee poly exchange Plan: []WBAT PT/OT eliquis 2.5 mg po BID x 30 days post op DC planned later today if goals met with PT and pain remains controlled Vital Signs Temp 97.6 F 03/12/19 07:29 Pulse 68 03/12/19 07:29 Resp 18 03/12/19 08:36 BP 118/65 03/12/19 07:29 Pulse Ox 98 03/12/19 07:29 Intake & Output 03/11/19 03/12/19 03/12/19 18:59 06:59 18:59 Intake Total 2000 1500 720 Output Total 350 0 Balance 1650 1500 720 Weight 212 lb Intake: IV Fluids 2000 LR 2000 Oral 1500 720 Output: Urine 0 Rangel 350 Other: Estimated Void Small # Bowel Movements 1 Estimated Stool Amount Small # Voids 2 Laboratory Last Values Hgb 12.8 g/dL (12.0-16.0) 03/12/19 05:32 Hct 39 % (35-47) 03/12/19 05:32 Plt Count 267 10^3/uL (150-450) 03/12/19 05:32 MPV 8.1 fL (7.4-10.4) 03/12/19 05:32 Sodium 138 mmol/L (135-145) 03/12/19 05:32 Potassium 3.7 mmol/L (3.5-5.0) 03/12/19 07:25 Chloride 105 mmol/L (101-111) 03/12/19 05:32 Carbon Dioxide 23 mmol/L (22-32) 03/12/19 05:32 Anion Gap 10 mmol/L (2-11) 03/12/19 05:32 BUN 10 mg/dL (6-24) 03/12/19 05:32 Creatinine 0.63 mg/dL (0.51-0.95) 03/12/19 05:32 Est GFR ( Amer) 120.1 (>60) 03/12/19 05:32 Est GFR (Non-Af Amer) 99.2 (>60) 03/12/19 05:32 BUN/Creatinine Ratio 15.9 (8-20) 03/12/19 05:32 Glucose 119 mg/dL (70-100) H 03/12/19 05:32 Calcium 9.5 mg/dL (8.6-10.3) 03/12/19 05:32
--- NOTE | 2019-03-12 13:34 | DS ---
Orthopedic Discharge Summary - Discharge Summary Date of Admission:03/11/19 Date of Discharge: 03/12/19 Date of Surgery: 03/11/19 Attending Orthopedic Provider: Dr. Horton Pre-operative Diagnosis: failed right total knee prosthesis, polyethylene component Operative Procedure: Poly exchange right total knee arthroplasty Disposition of Patient: home Condition of Patient: stable History: LICO OSUNA is a 53 year old F who had right total knee arthroplasty 9 months ago and had a fall with subsequent pain and instability of the knee since. It was felt that there could be MCL injury and possible need for revision to a constrained prosthesis. during surgery it was found that the polyethylene post had been broken, remainder of the knee was stable, therefore only poly exchange was needed. Hospital Course: LICO was admitted to [facility] on 03/11/19. Patient underwent a poly exchange, right total knee arthroplasty without complication followed by a brief recovery in PACU and transfer to the Short Stay Surgical Unit in stable condition. Our hospitalist service, physical therapy and occupational therapy also participated in this patients care. Post- op day 1: patient was alert and in no acute distress. Dressing was clean, dry and intact. Operative extremity dorsiflexion and plantarflexion intact, sensation intact to light touch distally, DP +2. Her dressing was changed, incision was clean, dry and intact. Patient was deemed to be medically and orthopedically stable for discharge. Physical therapy goals were met. Home Medications Medication Instructions Recorded Confirmed Type clonazePAM TAB(*) [Klonopin TAB(*)] 1 mg PO TID 04/17/14 02/27/19 History Hydrochlorothiazide TAB* 25 mg PO QAM 02/27/19 02/27/19 History [Hydrodiuril TAB*] Oxycodone HCl 10 mg PO BID 02/27/19 02/27/19 History Cbd Oil W/ Thc 03/11/19 History Apixaban* [Eliquis*] 2.5 mg PO BID #60 tab 03/12/19 Rx oxyCODONE/Acetamin 5/325 MG* 1 - 2 tab PO Q4H PRN #56 tab MDD 8 03/12/19 Rx [Percocet 5/325 TAB*] Discharge home with VNS Eliquis for DVT prophylaxis Follow up with Dr. Horton in 3-4 weeks in clinic.
--- NOTE | 2019-03-12 20:07 | PN ---
Subjective Date of Service: 03/12/19 Interval History: Hospitalist Consult Note 53 F PMH HTN anxiety, chronic pain her for knee revision POD #1 Some complaints of pain, manegable Lots of disposition questions, defer to surgery who will see her in the afternoon. Objective Active Medications: Acetaminophen (Tylenol Tab*) 975 mg PO 0100,0900,1700 [facility] Last Admin: 03/12/19 17:58 Dose: Not Given Apixaban (Eliquis*) 2.5 mg PO BID [facility] Last Admin: 03/12/19 08:31 Dose: 2.5 mg Clonazepam (Klonopin Tab(*)) 1 mg PO TID [facility] Last Admin: 03/12/19 14:07 Dose: 1 mg Cyclobenzaprine HCl (Flexeril Tab*) 5 mg PO TID PRN PRN Reason: SPASMS Diphenhydramine HCl (Benadryl Iv*) 25 mg IV Q6H PRN PRN Reason: itching Diphenhydramine HCl (Benadryl Po*) 25 mg PO Q6H PRN PRN Reason: itching Hydrochlorothiazide (Hydrodiuril Tab*) 25 mg PO QAM [facility] Last Admin: 03/12/19 08:31 Dose: 25 mg Dextrose/Sodium Chloride (D5w 1/2 Ns 1000 Ml Bag*) 1,000 mls @ 100 mls/hr IV PER RATE [facility] Last Admin: 03/12/19 06:18 Dose: 100 mls/hr Lactulose (Lactulose*) 30 ml PO BID PRN PRN Reason: CONSTIPATION Magnesium Hydroxide (Milk Of Magnesia Liq*) 30 ml PO BID [facility] Last Admin: 03/12/19 08:35 Dose: 30 ml Magnesium Hydroxide (Milk Of Magnesia Liq*) 30 ml PO Q6H PRN PRN Reason: constipation Morphine Sulfate (Morphine Inj (Syringe))*) 2 mg IV Q2H PRN PRN Reason: PAIN Ondansetron HCl (Zofran Inj*) 4 mg IV Q6H PRN PRN Reason: nausea Ondansetron HCl (Zofran Odt Tab*) 4 mg PO Q6H PRN PRN Reason: NAUSEA Oxycodone HCl (Roxycodone Tab*) 10 mg PO Q4H PRN PRN Reason: PAIN - SEVERE Last Admin: 03/12/19 15:46 Dose: 10 mg Oxycodone/Acetaminophen (Percocet 5/325 Tab*) 1 tab PO Q4H PRN PRN Reason: PAIN - MILD Oxycodone/Acetaminophen (Percocet 5/325 Tab*) 2 tab PO Q4H PRN PRN Reason: PAIN - MODERATE Last Admin: 03/12/19 18:07 Dose: 2 tab Vital Signs - 8 hr 03/12/19 03/12/19 03/12/19 12:04 14:07 14:34 Temperature Pulse Rate Respiratory 18 18 18 Rate Blood Pressure (mmHg) O2 Sat by Pulse Oximetry 03/12/19 03/12/19 03/12/19 14:35 15:46 16:00 Temperature Pulse Rate Respiratory 18 18 Rate Blood Pressure (mmHg) O2 Sat by Pulse 100 Oximetry 03/12/19 03/12/19 03/12/19 16:53 17:58 18:07 Temperature 98.2 F Pulse Rate 66 Respiratory 16 18 18 Rate Blood Pressure 123/72 (mmHg) O2 Sat by Pulse 100 Oximetry Oxygen Devices in Use Now: None Appearance: Pleasant NAD Eyes: No Scleral Icterus Ears/Nose/Mouth/Throat: NL Teeth, Lips, Gums, Clear Oropharnyx Neck: NL Appearance and Movements; NL JVP Respiratory: Symmetrical Chest Expansion and Respiratory Effort, Clear to Auscultation Cardiovascular: NL Sounds; No Murmurs; No JVD, RRR Abdominal: NL Sounds; No Tenderness; No Distention, No Hepatosplenomegaly Lymphatic: No Cervical Adenopathy Extremities: No Edema, - - R knee wrapped Skin: No Rash or Ulcers Neurological: Alert and Oriented x 3 Result Diagrams: 03/12/19 05:32 03/12/19 07:25 Assess/Plan/Problems-Billing Assessment: 53 F PMH HTN anxiety, chronic pain her for knee revision - Patient Problems (1) Knee joint replacement status Current Visit: Yes Status: Acute Code(s): Z96.659 - PRESENCE OF UNSPECIFIED ARTIFICIAL KNEE JOINT SNOMED Code(s): 167191006 Comment: - Post op pain per surgery (2) Hypertension Current Visit: Yes Status: Acute Code(s): I10 - ESSENTIAL (PRIMARY) HYPERTENSION SNOMED Code(s): 43314180 Comment: - Well controlled on HCTZ (3) Anxiety Current Visit: Yes Status: Acute Code(s): F41.9 - ANXIETY DISORDER, UNSPECIFIED SNOMED Code(s): 69011081 Comment: - On standing clonazepam, working with primary to wean (4) Chronic pain Current Visit: Yes Status: Acute Code(s): G89.29 - OTHER CHRONIC PAIN SNOMED Code(s): 52193648 Comment: - Home meds along with PRNs to be arranged by primary surgeon (5) DVT prophylaxis Current Visit: Yes Status: Acute Code(s): Z29.9 - ENCOUNTER FOR PROPHYLACTIC MEASURES, UNSPECIFIED SNOMED Code(s): 901392392 Comment: - Apixaban per surgery (6) Full code status Current Visit: Yes Status: Acute Code(s): Z78.9 - OTHER SPECIFIED HEALTH STATUS SNOMED Code(s): 700849335 Status and Disposition: Anticipate d/c
[2019-03-13] MEDS: Acetaminophen TAB* 325 MG PO SCH ×2 (00:27→08:02)
[2019-03-13] MEDS: oxyCODONE TAB* 5 MG TAB PO PRN ×3 (00:30→10:25)
[2019-03-13] MEDS: oxyCODONE/Acetamin 5/325 MG* TAB PO PRN ×2 (02:38→08:02)
[2019-03-13 06:14] LABS: Hematocrit 38 % (35-47); Hemoglobin 12.8 g/dL (12.0-16.0); Platelet Count 292 10^3/uL (150-450)
[2019-03-13 07:39] VITALS: BP 129/74
[2019-03-13] MEDS: clonazePAM TAB(*) 1 MG PO SCH (08:02)
[2019-03-13] MEDS: Magnesium Hydroxide LIQ* 30 ML UDC PO SCH (08:02)
[2019-03-13] MEDS: Hydrochlorothiazide TAB* 25 MG PO SCH (08:02)
[2019-03-13] MEDS: Apixaban* 2.5 MG TAB PO SCH (08:03)
== END 2019-03-13 10:50 | disposition home or self-care (01) ==
LOC: INTOOBSV 08:25 → OBSVTOIN 08:25 → AA 08:25 → SSU 15:38
PROVIDERS: ADMIT Orthopaedic Surgery; ATTEND Orthopaedic Surgery
DX: T84.022D Instability of internal right knee prosthesis, subsequent encounter (principal); S83.411S Sprain of medial collateral ligament of right knee, sequela; I10 Essential (primary) hypertension; M71.22 Synovial cyst of popliteal space [Baker], left knee; M54.9 Dorsalgia, unspecified; G89.29 Other chronic pain; Z96.651 Presence of right artificial knee joint; F41.9 Anxiety disorder, unspecified
CPT/HCPCS: 36415; 80048; 85014; 85018; 85049; 88300; 96374; 96375; 96376; A9270-GY; C1776; G0378; G8978-GP-CJ; G8979-GP-CI; J0690; J1100; J1200; J2250; J2270; J2405; J2704; J2795; J3010

== ENCOUNTER 2019-06-25 18:14 | Emergency (ER) | payer MEDICARE, MEDICAID ==
--- NOTE | 2019-06-25 19:36 | ED ---
Lower Extremity - HPI Summary HPI Summary: Patient complains of chronic right knee pain and chronic back pain worse after [address] 1 week ago. . States she is out of her description opiates and would like a refill. Denies any other pain, injury or symptoms. Medical history as HTN, chronic pain. - History of Current Complaint Chief Complaint: EDExtremityLower Stated Complaint: LEG/BACK PAIN PER PT Time Seen by Provider: 06/25/19 18:59 Hx Obtained From: Patient Mechanism Of Injury: Other Onset/Duration: Still Present Severity Initially: Severe Severity Currently: Moderate Pain Intensity: 10 Pain Scale Used: 0-10 Numeric Timing: Constant Location: Is Discrete @ Character Of Pain: Aching, Throbbing Associated Signs And Symptoms: Positive: Swelling Aggravating Factor(s): Standing, Ambulation, Movement Alleviating Factor(s): Rest, Elevation Able to Bear Weight: Yes - Allergies/Home Medications Allergies/Adverse Reactions: Allergies Allergy/AdvReac Type Severity Reaction Status Date / Time celecoxib [From Celebrex] Allergy Unknown Verified 03/11/19 09:07 Reaction Details ibuprofen Allergy Edema Verified 03/11/19 09:07 PMH/Surg Hx/FS Hx/Imm Hx Endocrine/Hematology History: Denies: Hx Anticoagulant Therapy, Hx Diabetes Cardiovascular History: Reports: Hx Hypertension - ON MEDS Denies: Hx Congestive Heart Failure Respiratory History: Denies: Other Respiratory Problems/Disorders History: Denies: Hx Dialysis Musculoskeletal History: Reports: Hx Arthritis - knees, low back fusion, Other Musculoskeletal History - right total knee replacement, back issues Comment Only: Hx Back Problems - L5 fusion Sensory History: Reports: Hx Contacts or Glasses - glasses Denies: Hx Hearing Aid Opthamlomology History: Reports: Hx Contacts or Glasses - glasses EENT History: Denies: Hx Deafness Neurological History: Denies: Hx Headaches, Hx Nerve Disease, Hx Seizures, Other Neuro Impairments/ Disorders Psychiatric History: Reports: Hx Anxiety, Hx Depression - Cancer History Hx Chemotherapy: No Hx Radiation Therapy: No - Surgical History Surgery Procedure, Year, and Place: L5 spinal fusion 2006, Right TKR 2009 Hx Anesthesia Reactions: No - Immunization History Date of Tetanus Vaccine: utd Date of Influenza Vaccine: utd Infectious Disease History: No Infectious Disease History: Denies: History Other Infectious Disease, Traveled Outside the [place] in Last 30 Days - Family History Known Family History: Positive: Cardiac Disease, Hypertension, Other - CVA - Social History Alcohol Use: None Hx Substance Use: Yes Substance Use Type: Reports: Excessive Caffeine, Marijuana, Other Substance Use Comment - Amount & Last Used: 2 days ago Smoking Status (MU): Light Every Day Tobacco Smoker Amount Used/How Often: 1/2 pack a day Review of Systems Constitutional: Negative Eyes: Negative ENT: Negative Cardiovascular: Negative Respiratory: Negative Gastrointestinal: Negative Genitourinary: Negative Musculoskeletal: Other Skin: Negative Neurological: Negative Psychological: Normal All Other Systems Reviewed And Are Negative: Yes Physical Exam - Summary Physical Exam Summary: No erythema, ecchymosis, deformity, swelling, extra warmth noted to right lower extremity. Full range of motion of right ankle and right knee and right hip. Calf soft nontender. Patient does not express pain with palpation when she is talking and distracted. Asking for pain medication prescription repeatedly. Triage Information Reviewed: Yes Vital Signs On Initial Exam: Initial Vitals Temp Pulse Resp BP Pulse Ox 98.1 F 78 18 149/96 98 06/25/19 18:18 06/25/19 18:18 06/25/19 18:18 06/25/19 18:18 06/25/19 18:18 Vital Signs Reviewed: Yes Appearance: Positive: Well-Appearing Skin: Positive: Warm Head/Face: Positive: Normal Head/Face Inspection Eyes: Positive: Normal Neck: Positive: Supple Respiratory/Lung Sounds: Positive: Clear to Auscultation Cardiovascular: Positive: Normal Abdomen Description: Positive: Nontender Musculoskeletal: Positive: Normal Neurological: Positive: Normal Psychiatric: Positive: Normal AVPU Assessment: Alert - Nasir Coma Scale Best Eye Response: 4 - Spontaneous Best Motor Response: 6 - Obeys Commands Best Verbal Response: 5 - Oriented Coma Scale Total: 15 Procedures - Sedation Patient Received Moderate/Deep Sedation with Procedure: No Diagnostics - Vital Signs Vital Signs Temp Pulse Resp BP Pulse Ox 06/25/19 19:09 98.0 F 69 20 159/95 100 06/25/19 18:18 98.1 F 78 18 149/96 98 - Laboratory Lab Statement: Any lab studies that have been ordered have been reviewed, and results considered in the medical decision making process. Lower Extremity Course/Dx - Course Course Of Treatment: Patient complains of chronic right knee pain and chronic back pain worse after [address] 1 week ago. . States she is out of her description opiates and would like a refill. Denies any other pain, injury or symptoms. Medical history as HTN, chronic pain. Vital signs within normal limits. Patient given oxycodone 5 mg here in the ED. No Rx. As patient follow up with primary care or pain management. - Diagnoses Provider Diagnoses: Chronic knee pain, Chronic back pain Discharge ED - Sign-Out/Discharge Documenting (check all that apply): Patient Departure - Discharge Plan Condition: Stable Disposition: HOME Patient Education Materials: Knee Pain (ED), Back Pain (ED) Referrals: Magalys Glass MD [Primary Care Provider] - Additional Instructions: Follow-up with Dr. Horton for further evaluation of knee pain. Follow-up with primary care for management of your prescription meds. - Billing Disposition and Condition Condition: STABLE Disposition: Home
[2019-06-25] MEDS: oxyCODONE TAB* 5 MG TAB PO ONE (19:44)
[2019-06-25 20:17] VITALS: BP 0/0
== END 2019-06-25 19:45 | disposition home or self-care (01) ==
LOC: ED 18:14
DX: M25.562 Pain in left knee (principal); M54.9 Dorsalgia, unspecified; G89.29 Other chronic pain; I10 Essential (primary) hypertension; F41.9 Anxiety disorder, unspecified; F32.9 Major depressive disorder, single episode, unspecified; F17.200 Nicotine dependence, unspecified, uncomplicated; Z96.651 Presence of right artificial knee joint; Z79.899 Other long term (current) drug therapy; Z88.6 Allergy status to analgesic agent; Z88.8 Allergy status to other drugs, medicaments and biological substances
CPT/HCPCS: 99282; A9270-GY

== ENCOUNTER 2020-08-17 06:19 | Observation (INO) ==
[~2020-08-17 06:19] MED LIST changes: -Acetaminophen TAB* 325 MG ONE; -Acetaminophen TAB* 325 MG PO ONE; +Buffered Lidocaine 1% SYRIN 1 ml INTRADERM ONE; -Buffered Lidocaine 1% SYRIN* 1 ML/SYRINGE INTRADERM ONE; +Dexamethasone IV 4 MG/ML VIAL 1 ml VIAL IV SLOW PU ONE; -Famotidine IV* 10 MG/ML 2 ML (20 mg) IV ONE; -Famotidine IV* 10 MG/ML 2 ML (20 mg) ONE; -Gabapentin CAP(*) 300 MG ONE; -Gabapentin CAP(*) 300 MG PO ONE; -Lactated Ringers 1000 ML Bag* 1,000 ML IV SCH; +Lactated Ringers 1000 ml BAG 1,000 ML IV SCH; -Tranexamic Acid 1,000 MG in NS 0.9% 50 ML* (outpatient use) IV SCH; -ceFAZolin 2 GM in NS PREMIX(*) 2 GM/100 ML BAG IVPB ONE
[2020-08-17] MEDS ORDERED: Dexamethasone IV 4 MG/ML VIAL 1 ml VIAL ONE (06:32)
[2020-08-17] MEDS ORDERED: ceFAZolin 2 GM PREMIX 2 GM/50 ML BAG ONE (06:33)
[2020-08-17] MEDS ORDERED: Propofol 10 MG/ML 20 ML BTL ONE (06:49)
[2020-08-17] MEDS ORDERED: Ondansetron 4 mg VIAL 2 MG/ML 2 ml VIAL ONE (06:49)
[2020-08-17] MEDS ORDERED: Lidocaine 2% PF 5 ML VIAL ONE ×2 (06:49→11:00)
[2020-08-17] MEDS ORDERED: Midazolam 2 mg/2 ml VIAL 1 mg/ml 2 ml VIAL (2 mg) ONE (07:00)
[2020-08-17] MEDS ORDERED: Lidocaine 1% MPF 5 ML VIAL ONE (07:23)
[2020-08-17] MEDS ORDERED: ROPIVACAINE 5 MG/ML 30 ML BTL (0.5%) ONE (07:23)
[2020-08-17] MEDS ORDERED: Rocuronium 50 mg VIAL 10 mg/ml 5 ml VIAL (50 mg) ONE ×2 (07:44→08:27)
[2020-08-17] MEDS ORDERED: fentaNYL 250 mcg/5 ml 50 MCG/ML 5 ml VIAL (250 MCG) ONE (07:44)
[2020-08-17] MEDS ORDERED: Lidocaine 1% w EPI 1:100,000 MDV 20 ML VIAL ONE (07:56)
[2020-08-17] MEDS ORDERED: Bupivacaine 0.5% SDV PF 30ML VIAL ONE (07:56)
[2020-08-17] MEDS ORDERED: HYDROmorphone 1 MG/1 ML SYRINGE ONE ×2 (07:58→11:27)
[2020-08-17] MEDS ORDERED: Ondansetron 4 mg VIAL 2 MG/ML 2 ml VIAL IV PRN ×2 (08:32→11:16)
[2020-08-17] MEDS ORDERED: Naloxone 0.4 mg VIAL 0.4 mg/ml 1 ml VIAL IV PRN (08:32)
[2020-08-17] MEDS ORDERED: HYDROmorphone 1 MG/1 ML SYRINGE IV PRN (08:32)
[2020-08-17] MEDS ORDERED: fentaNYL 100 mcg/2 ml 50 MCG/ML VIAL ONE ×5 (08:33→11:53)
[2020-08-17] MEDS ORDERED: Vancomycin 1,000 MG VIAL ONE (08:51)
[2020-08-17] MEDS ORDERED: diPHENhydraMINE IV 50 MG/ML 1 ml VIAL (BENADRYL) IV PRN (11:16)
[2020-08-17] MEDS ORDERED: Magnesium Hydroxide LIQ 30 ML UDC PO PRN (11:16)
[2020-08-17] MEDS ORDERED: Lactulose 30 ml UDC PO PRN (11:16)
[2020-08-17] MEDS ORDERED: diPHENhydraMINE 25 mg TAB PO PRN (11:16)
[2020-08-17] MEDS ORDERED: Ondansetron ODT 4 mg TAB 4 MG TAB PO PRN (11:16)
[2020-08-17] MEDS ORDERED: Morphine 2 MG/ML SYRINGE IV PRN (11:16)
[2020-08-17] MEDS ORDERED: NARATRIPTAN 1 MG PO PRN (11:21)
[2020-08-17] MEDS: fentaNYL 100 mcg/2 ml 50 MCG/ML VIAL IV PRN ×4 (11:25→12:05)
[2020-08-17] MEDS ORDERED: D5W 1/2 NS 1000 ml BAG 1,000 ML IV SCH (12:00)
[2020-08-17] MEDS ORDERED: DICLOFENAC 1.3% TRANSDERM PRN (12:44)
[2020-08-17] MEDS ORDERED: ceFAZolin 1 GM ADVAN 1 GM in NS 0.9% 50 ML 50 ML IVPB SCH (16:00)
[2020-08-17 17:12] VITALS: BP 149/85
[2020-08-17] MEDS ORDERED: THC INH SCH (21:00)
[2020-08-17] MEDS ORDERED: CBD OIL INH SCH (21:00)
[2020-08-17] MEDS ORDERED: Magnesium Hydroxide LIQ 30 ML UDC PO SCH (21:00)
[2020-08-17] MEDS ORDERED: [UNRECOGNIZED DRUG - OTHER] PATCH OFF SCH (21:00)
[2020-08-18] MEDS ORDERED: Vitamin THERAPEUTIC TAB PO SCH (09:00)
== END 2020-08-17 20:00 | disposition home or self-care (01) ==
LOC: OR 06:19 → SSU 06:19
PROVIDERS: ADMIT Orthopaedic Surgery; ATTEND Orthopaedic Surgery